=== PATIENT | female | born 1940 | race Caucasian/White ===

== ENCOUNTER 2016-11-09 20:58 | Inpatient (IN) | payer MEDICARE, MEDICAID ==
[~2016-11-09] VITALS: Ht 152.4 cm; Wt 63.5 kg
[~2016-11-09 20:58] MED LIST: Fluconazole PO; METO25TA20 PO; METR500T PO; PANT40VI IV
[2016-11-09] MEDS ORDERED: IV NS 0.9% 500 ML BAG IV ONE ×2 (21:30→22:00)
[2016-11-09 21:35] LABS: BASOPHILS # (AUTO) 0.2 /CMM (0.0-0.2); BASOPHILS % (AUTO) 0.5 % (0.0-2.0); HEMATOCRIT 26 % (33-45); HEMOGLOBIN 9.3 g/dL (11.5-14.8); LYMPHOCYTES # (AUTO) 0.9 /CMM (0.8-4.8); LYMPHOCYTES % (AUTO) 2.9 % (20.0-44.0); MEAN CORPUSCULAR HEMOGLOBIN 36 PG (26.0-33.0); MEAN CORPUSCULAR HGB CONC 36 g/dl (31.0-36.0); MEAN CORPUSCULAR VOLUME 100 fL (82-100); MONOCYTES % (AUTO) 3.3 % (2.0-12.0); NEUTROPHILS # (AUTO) 28.2 /CMM (1.8-8.9); NEUTROPHILS % (AUTO) 93.3 % (43.0-81.0); PLATELET COUNT (AUTO) 423 /CMM (150-450); RDW COEFFICIENT OF VARIATION 12.7 (11.5-15.0); RED BLOOD CELL COUNT(AUTO) 2.57 MIL/uL (4.0-5.2)
[2016-11-09 21:38] LABS: WHITE BLOOD COUNT (AUTO) 30.3 K/uL (4.3-11.0)
[2016-11-09] MEDS ORDERED: ONDANSETRON HCL/PF 4 MG/2 ML VIAL ONE (21:39)
--- NOTE | 2016-11-09 21:39 | NUR ---
DR GRAMAJO ON THE PHONE WITH OB DR DUBOIS
[2016-11-09 21:40] LABS: CALCIUM, SERUM 7.7 mg/dL (8.5-10.1); CARBON DIOXIDE 18 mmol/L (21-32); CHLORIDE 95 mmol/L (98-107); CREATININE 1.5 mg/dL (0.6-1.3); GLUCOSE 202 mg/dL (74-106); POTASSIUM 4.1 mmol/L (3.5-5.1); SODIUM SERUM 128 mmol/L (136-145); UREA NITROGEN, BLOOD 24 mg/dL (7-18)
[2016-11-09] MEDS ORDERED: MORPHINE SULFATE INJ 2 MG/ML DISP.SYRIN ONE (21:47)
[2016-11-09 21:48] LABS: TROPONIN I < 0.017 ng/mL (0.00-0.056)
[2016-11-09 21:49] LABS: INR 1.27 (0.87-1.13); PROTHROMBIN TIME 13.4 SECS (9.5-12.7)
[2016-11-09] MEDS ORDERED: PIPERACILLIN /TAZOBACTAM 3.375 G VIAL IV ONE (21:52)
[2016-11-09 21:53] LABS: ALANINE AMINOTRANSFERASE 11 U/L (12-78); ALBUMIN 1.9 g/dL (3.4-5.0); ALKALINE PHOSPHATASE 202 U/L (46-116); ASPARTATE AMINOTRANSFERASE 21 U/L (15-37); B-TYPE NATRIURETIC PEPTIDE 3477 PG/ML (0-125); BILIRUBIN,DIRECT 0.6 mg/dL (0.0-0.2); TOTAL PROTEIN, SERUM 6.5 g/dL (6.4-8.2)
[2016-11-09] MEDS ORDERED: ONDANSETRON HCL/PF 4 MG/2 ML VIAL IV ONE (22:00)
[2016-11-09] MEDS ORDERED: IV NS 0.9% 1,000 ML BAG IV ONE (22:00)
[2016-11-09] MEDS ORDERED: PIPERACILLIN /TAZOBACTAM 3.375 G in IV D5W 50 ML IV ONE (22:00)
[2016-11-09] MEDS ORDERED: MORPHINE SULFATE INJ 4 MG/ML DISP.SYRIN IV ONE (22:00)
--- NOTE | 2016-11-09 22:09 | NUR ---
DR. WISEMAN CALLED.
[2016-11-09] MEDS ORDERED: VANCOMYCIN 1 GM in IV D5W 250 ML IV ONE (22:30)
[2016-11-09] MEDS ORDERED: VANCOMYCIN 1 GM VIAL ONE (22:48)
[2016-11-09] MEDS ORDERED: PANTOPRAZOLE 40 MG VIAL IV SCH (23:00)
[2016-11-09] MEDS ORDERED: IV D5/ 0.9% NACL 1,000 ML IV SCH (23:00)
--- NOTE | 2016-11-09 23:14 | NUR ---
ICU 260
[2016-11-09 23:20] LABS: APPEARANCE,URINE CLOUDY (CLEAR); COLOR,URINE YELLOW (YELLOW)
[2016-11-09 23:21] LABS: PH,URINE 7.5 (5.0-8.0); PROTEIN,URINE 1+ mg/dl (NEGATIVE)
[2016-11-09 23:22] LABS: BILIRUBIN,URINE NEGATIVE (NEGATIVE); BLOOD, URINE 1+ Ery/uL (NEGATIVE); KETONES,URINE TRACE (NEGATIVE); UGLUCOSE NEGATIVE (NEGATIVE); UROBILINOGEN,URINE 0.2 EU/dL (0.2)
[2016-11-09 23:23] LABS: LEUKOCYTE ESTERASE ,URINE 2+ (NEGATIVE); NITRITE, URINE NEGATIVE (NEGATIVE)
[2016-11-09 23:24] LABS: BACTERIA,URINE Many /HPF (None Seen); SQUAMOUS EPITHELIAL CELL,UR Few /HPF (None Seen); WBC,URINE 81-100 /HPF (0-3)
[2016-11-09] MEDS ORDERED: DEXTROSE 50%-WATER 50 ML DISP.SYRIN IV PRN (23:30)
[2016-11-10] VITALS (71 sets, daily range): BP systolic 58–164; BP diastolic 14–72
[2016-11-10] MEDS ORDERED: PANTOPRAZOLE 40 MG VIAL ONE (00:10)
--- NOTE | 2016-11-10 00:20 | NUR ---
COMIC BOOK WRITER - NOTES - PT RECEIVED IN ROOM 260, ADMITTED FOR SEPSIS UTI. PT IS ALERT AND ORIENTED X4, MOZAMBICAN SPEAKING, NO COMPLAINTS OF NAUSEA/VOMITING OR PAIN AT THIS MOMENT. PT IS IN NORMAL SINUS RHYTHM, SBP 90S-100S. PT IS ON ROOM AIR TOLERATING WELL 02SAT > 96%. PT IS ON CLEAR LIQUID DIET, PT STATED THAT SHE DOES NOT REALLY EAT AT HOME, SINCE LIKE 3-4 WEEKS AGO, SHE ONLY DRINKS WATER. PT HAS A COTTO CATHETER WITH MILKY WHITISH YELLOW URINE, URINE SAMPLE SENT FOR CULTURE, ADEQUATE AMOUNT OF URINE. PT HAS WHAT LOOKS LIKE A HEALED PRESSURE SORE, PICTURE TAKEN, SHE STATES THAT SHE HAS NOT WALKED IN LIKE 3-4 WEEKS. PT HAS A L AC 20G IV, INTACT AND PATENT. WILL CONTINUE TO MONITOR
[2016-11-10] MEDS: BLOOD SUGAR DIAGNOSTIC 1 EACH STRIP IN SCH ×5 (00:51→22:43)
[2016-11-10] MEDS: INSULIN REGULAR, HUMAN 100 UNIT/ML 3 ML VIAL SQ PRN ×5 (00:58→22:44)
[2016-11-10] MEDS ORDERED: INSULIN REGULAR, HUMAN 100 UNIT/ML 3 ML VIAL ONE (01:14)
[2016-11-10] MEDS ORDERED: PIPERACILLIN /TAZOBACTAM 2.25 G VIAL IV ONE (04:44)
[2016-11-10 04:58] LABS: HEMATOCRIT 21 % (33-45); HEMOGLOBIN 7.6 g/dL (11.5-14.8); LYMPHOCYTES # (AUTO) 1.1 /CMM (0.8-4.8); LYMPHOCYTES % (AUTO) 4.8 % (20.0-44.0); MEAN CORPUSCULAR HEMOGLOBIN 38 PG (26.0-33.0); MEAN CORPUSCULAR HGB CONC 36 g/dl (31.0-36.0); MEAN CORPUSCULAR VOLUME 107 fL (82-100); MONOCYTES # (AUTO) 1.1 /CMM (0.1-1.30); NEUTROPHILS # (AUTO) 20.9 /CMM (1.8-8.9); NEUTROPHILS % (AUTO) 90.2 % (43.0-81.0); PLATELET COUNT (AUTO) 296 /CMM (150-450); RDW COEFFICIENT OF VARIATION 13.1 (11.5-15.0); WHITE BLOOD COUNT (AUTO) 23.1 K/uL (4.3-11.0)
[2016-11-10] MEDS ORDERED: PIPERACILLIN /TAZOBACTAM 4.5 G in IV D5W 50 ML IV SCH (05:00)
[2016-11-10 05:24] LABS: ALANINE AMINOTRANSFERASE 11 U/L (12-78); ALBUMIN 1.5 g/dL (3.4-5.0); ALKALINE PHOSPHATASE 162 U/L (46-116); ASPARTATE AMINOTRANSFERASE 17 U/L (15-37); BILIRUBIN,TOTAL 0.7 mg/dL (0.2-1.0); CALCIUM, SERUM 7.2 mg/dL (8.5-10.1); CARBON DIOXIDE 19 mmol/L (21-32); CHLORIDE 101 mmol/L (98-107); CREATININE 1.5 mg/dL (0.6-1.3); GLUCOSE 164 mg/dL (74-106); POTASSIUM 3.5 mmol/L (3.5-5.1); PREALBUMIN 5.6 MG/DL (18.0-35.7); SODIUM SERUM 131 mmol/L (136-145); THYROID STIMULATING HORMONE 1.547 uIU/mL (0.358-3.74); TOTAL PROTEIN, SERUM 5.7 g/dL (6.4-8.2); UREA NITROGEN, BLOOD 21 mg/dL (7-18)
[2016-11-10 05:26] LABS: IRON, SERUM 18 ug/dl (50-175); TOTAL IRON BINDING CAPACITY 50 ug/dl (250-450)
[2016-11-10 05:28] LABS: RED BLOOD CELL COUNT(AUTO) 1.98 MIL/uL (4.0-5.2)
[2016-11-10 05:55] LABS: BAND % (MANUAL) 1 % (0.0-5.0); LYMPHOCYTES % (MANUAL) 9 % (16-48); MONOCYTES % (MANUAL) 4 % (0-11.0); NEUTROPHILS % (MANUAL) 86 (42-76)
--- NOTE | 2016-11-10 07:35 | NUR ---
INITIAL DRIVER'S LICENSE REVIEWING OFFICER NOTE RCVD PT AWAKE AND ALERT SHOWING NO S/O DISTRESS. ST ON TELE. GOOD SATURATION ON RA. COTTO DRAINING CLOUDY, YELLOW URINE. LEFT AC #20 C/D/I/PATENT. NO S/O INFILTRATION/PHLEBITIS OBSERVED. IVF INFUSING. PT'S SON, OREN AT BEDSIDE UPDATED ON PT'S CONDITION. WILL CONTINUE TO MONITOR PT FOR SAFETY AND COMFORT. CALL LIGHT WITHIN REACH. BED IN LOW AND LOCKED POSITION.
[2016-11-10] MEDS: ACETAMINOPHEN 325 MG TABLET PO PRN (08:20)
[2016-11-10] MEDS ORDERED: METO25TA20 PO (08:33)
[2016-11-10] MEDS ORDERED: MEGE400O PO (08:33)
[2016-11-10] MEDS ORDERED: FEE PK DOSING 1 MIN EA MC ONE (08:33)
[2016-11-10] MEDS ORDERED: IPRATROPIUM NEB FS 0.5 MG/2.5 ML AMPUL.NEB NEB SCH (09:00)
[2016-11-10] MEDS ORDERED: ACETAMINOPHEN 325 MG TABLET PO ONE (09:03)
[2016-11-10] MEDS: HYDROCODONE/APAP 5/325MG 1 EACH TABLET PO PRN (09:15)
--- NOTE | 2016-11-10 09:37 | NUR ---
ELECTROTYPER APPRENTICE NOTE DR. WISEMAN CALLED AND INFORMED OF THE FOLLOWING. PT C/O SEVERE PAIN ON LEFT LATERAL CHEST AREA 12/04, PT TAKING SHALLOW BREATHS DUE TO PAIN. PT STARTED ON 3L NC. PT FEELS HOT TO TOUCH, DESPITE TEMP 98.4 THIS AM. HGB TRENDING DOWN TO 7.6. RCVD ORDERS TO TRANSFUSE 1 UNIT PRBC, DECREASE IVF TO 40ML/HR, BREATHING TX, MORPHINE AND NORCO FOR PAIN MX. PT AND OREN INFORMED OF ABOVE. CONSENT FOR BLOOD TRANSFUSION OBTAINED FROM PT. ORDERS IN PLACE. WILL CONTINUE TO MONITOR.
--- NOTE | 2016-11-10 11:03 | NUR ---
PARAEDUCATOR NOTE DR. WISEMAN IN UNIT INFORMED OF PT'S SBP IN THE 70s. REQUESTED PICC LINE AND VASOPRESSOR MEDS. WILL ORDER. WILL CONTINUE TO MONITOR.
--- NOTE | 2016-11-10 11:14 | NUR ---
PHLEBOTOMY MANAGER NOTE PT REFUSING PICC LINE INSERTION. PT'S FAMILY AWARE. DR. DYE AT BEDSIDE EDUCATING PT ABOUT THE NEED FOR THE PICC. PT STILL REFUSES. DR. WISEMAN INFORMED HE'LL SPEAK TO PT.
[2016-11-10] MEDS ORDERED: NOREPINEPHRINE 8 MG in IV D5W 500 ML IV PRN (11:30)
--- NOTE | 2016-11-10 11:31 | NUR ---
JUDO TEACHER NOTE DR. WISEMAN CONVINCED PT TO GET PICC LINE INSERTED. ALLA RN CALLED AND WILL COME TO INSERT PICC LINE. CONSENT SIGNED BY PT AND PLACED IN CHART. PT'S FAMILY (OREN AND ELIDA) AWARE.
--- NOTE | 2016-11-10 12:24 | NUR ---
WOUND CARE CONSULT PATIENT SEEN AND SKIN INTEGRITY ASSESSMENT DONE. SEE BRAILLE AND TALKING BOOKS CLERK ASSESSMENT IN PCS FOR TODAY ALONG WITH ALL RECOMMENDATIONS. ALL TREATMENT PLANS AND SKIN MANAGEMENT DISCUSSED WITH MD AND MD IN AGREEMENT. 1ST STEP LOW AIRLOSS MATTRESS ORDERED AND TO BE PLACED WHEN AVAILABLE. RECOMMEND TURNING SCHED Q 2 HOURS PATIENT CONDITION PERMITS, AND RECOMMEND BILATERAL HEEL FLOATING. Z GUARD ORDERED FOR SKIN AND MOISTURE MANAGMENT. PATIENT WITH CURRENT JORDYN AT 13. PATIENT IS ABLE TO ASSIST WITH TURNING AND REPOSITIONING, BUT IS WEAK AND FRAIL AND REQUIRES ASSIST. PATIENT PRESENTS WITH STAGE 2 PRESSURE ULCER TO THE SACRAL AREA AND PER PATIENT STATEMENT TO ME, "IT'S BEEN THERE FOR A WHILE BECAUSE I'M PROBABLY IN BED TOO MUCH". ALL SKIN MANAGMENT DISCUSSED WITH NURSING AT THE BEDSIDE. Addendum: 11/10/16 at 1229 by MAURICE DAVID WNDNU Amended: Links added.
[2016-11-10] MEDS ORDERED: IV NS 0.9% 50 ML IV SCH (12:30)
[2016-11-10] MEDS ORDERED: IV NS 0.9% 1,000 ML BAG IV PRN (12:30)
[2016-11-10] MEDS ORDERED: HYDROGEL DRESSING 90 GM TUBE TP PRN (12:30)
[2016-11-10] MEDS ORDERED: Z GUARD REMEDY 2 OZ OINT TP PRN (12:30)
[2016-11-10] MEDS: IV NS 0.9% 1,000 ML IV PRN (12:46)
[2016-11-10] MEDS: ZINC SULFATE 220 MG CAPSULE PO SCH (12:47)
[2016-11-10] MEDS: METOCLOPRAMIDE HCL 10 MG/2 ML VIAL IV SCH ×2 (12:47→17:22)
[2016-11-10] MEDS: ASCORBIC ACID 500 MG TABLET PO SCH (12:47)
[2016-11-10] MEDS: ZOSYN IVPB 2.25 G in IV D5W 50ml IV SCH ×3 (12:47→23:11)
[2016-11-10] MEDS: MULTIVITAMINS,THERAGRAN 1 UDTAB TABLET PO SCH (12:47)
[2016-11-10] MEDS: MEGESTROL ACETATE SUSP 400 MG/10 ML UDC PO SCH ×2 (12:47→17:22)
[2016-11-10] MEDS ORDERED: IV NS 0.9% 1,000 ML IV PRN (13:00)
[2016-11-10] MEDS: HYDROGEL DRESSING 90 GM TUBE TP SCH (13:59)
[2016-11-10] MEDS: Z GUARD REMEDY 2 OZ OINT TP SCH (13:59)
--- NOTE | 2016-11-10 15:40 | NUR ---
Met with family at the bedside. Patient lives locally in the 1st floor apartment with grandson and patient significant other. Patient has been bed bound/chair bound for the past few months due to weakness to BLE and bedsore.Patient requires max to total assistance with adl. She has a caregiver 6days week 8-9hrs/day. She also has a pending IHSS application with an assigned case manager from the [facility]. Patient has wheelchair and walker at home, She is currently on homehealth services but family do not recall the name of the agency. Has good family support. Current plan is to return home with homehealth upon discharge. Addendum: 11/10/16 at 1859 by TOSHIA HOLLOWAY RN Amended: Links added.
--- NOTE | 2016-11-10 15:47 | NUR ---
TIRE CENTER MANAGER NOTE PT TRANSPORTED TO RADIOLOGY FOR CT SCAN PER PROTOCOL WITH RN AT BEDSIDE. PT'S VITAL SIGNS STABLE. WILL CONTINUE TO MONITOR.
[2016-11-10] MEDS: BOOST PLUS FOOD-VANILLA 237 ML BOX PO SCH ×2 (17:22→17:23)
--- NOTE | 2016-11-10 18:51 | NUR ---
ENDING HUNTING SALES LEADER NOTE PT AWAKE AND ALERT, SHOWING NO S/O DISTRESS OR C/O PAIN. ST ON TELE. PRBC TRANSFUSION IN PROCESS. COTTO DRAINING CLOUDY, YELLOW COLORED URINE. CAREN PICC IN PLACE C/D/I/PATENT. NO S/O INFILTRATION/PHLEBITIS OBSERVED. PT TOLERATING ORDERED DIET. PT'S CARE WILL BE ENDORSED TO DISTANCE EDUCATION TEACHER RN FOR CONTINUITY OF CARE.
--- NOTE | 2016-11-10 20:00 | NUR ---
RN NOTES RECEIVED PX AWAKE, ALERT, ORIENTED X 3, ON ROOM AIR, DENIED PAIN, SOB, N/V; BLOOD TRANSFUSION FINISHED INFUSING, PX DENIED CHEST PAIN, ITCHING; PX AFEBRILE V/S WNL WITH LEVOPHED TO KEEP SBP MORE THAN 85; HAS COTTO CATH TAPED TO THIGH TO BAG BY GRAVITY; PX REFUSED THE IDEA OF DVT PUMPS DESPITE HEALTH EDUCATION; HEELS OFFLOADED; DISCUSSED PLAN OF CARE. ST ON MONITOR BUT NOTED MULTIPLE ARTIFACTS.
--- NOTE | 2016-11-10 20:30 | NUR ---
RN NOTES DR. PAT CAME TO SEE PX, AWARE OF PX CONDITION, SUGGESTED TO PX EGD IN THE MORNING AND NPO POST MIDNIGHT IF PX AGREES TO PROCEDURE BUT PX DECLINED DESPITE HEALTH EDUCATION FROM . AWARE THAT PX DECLINED TO SIGN CONSENT.
--- NOTE | 2016-11-10 22:43 | NUR ---
RN NOTES BLOOD SUGAR 175 MG/DL, PX REFUSED INSULIN SQ DESPITE HEALTH EDUCATION.
[2016-11-10] MEDS: VANCOMYCIN 0.75 GM in IV D5W 250 ML IV SCH (23:11)
[2016-11-11] VITALS (48 sets, daily range): BP systolic 77–137; BP diastolic 20–89
[2016-11-11] MEDS ORDERED: AMIODARONE 150 MG/3 ML VIAL IV ONE ×2 (01:18→01:23)
[2016-11-11] MEDS ORDERED: AMIODARONE 150 MG in IV D5W 100 ML IV ONE (01:30)
--- NOTE | 2016-11-11 01:30 | NUR ---
RN NOTES AT AROUND 1:06 AM, PX HR INCREASED TO 180, EKG WAS DONE CONFIRMING SVT, PX DENIED CHEST PAIN, DIZZINESS, PALPITATIONS, BP MAINTAINED BY LEVOPHED DRIP NOW AT 5 MCG/MIN, DR. MANUEL WAS CALLED AND INFORMED RIGHT AWAY, DR. NARAYANAN WAS ALSO INFORMED, GAVE AMIODARONE LOAD 150 MG FOLLOWED BY AMIODARONE DRIP PER PROTOCOL.
[2016-11-11] MEDS: AMIODARONE 900 MG in IV D5W 482 ML IV PRN ×2 (01:33→12:31)
--- NOTE | 2016-11-11 02:00 | NUR ---
RN NOTES INFORMED PX THAT IF SHE DECIDES DURING DAY FOR THE EGD, SHE NEEDS TO BE NPO FOR THE PROCEDURE. SHE STATED THAT SHE UNDERSTOOD ITS PURPOSE, BUT SAYS I STILL WANT TO DRINK AND EAT.
[2016-11-11 04:39] LABS: BASOPHILS % (AUTO) 0.1 % (0.0-2.0); HEMATOCRIT 28 % (33-45); HEMOGLOBIN 9.7 g/dL (11.5-14.8); LYMPHOCYTES # (AUTO) 1.8 /CMM (0.8-4.8); LYMPHOCYTES % (AUTO) 5.5 % (20.0-44.0); MEAN CORPUSCULAR HEMOGLOBIN 33 PG (26.0-33.0); MEAN CORPUSCULAR HGB CONC 35 g/dl (31.0-36.0); MEAN CORPUSCULAR VOLUME 96 fL (82-100); MONOCYTES # (AUTO) 0.7 /CMM (0.1-1.30); MONOCYTES % (AUTO) 2.3 % (2.0-12.0); NEUTROPHILS # (AUTO) 30.1 /CMM (1.8-8.9); NEUTROPHILS % (AUTO) 92.1 % (43.0-81.0); PLATELET COUNT (AUTO) 306 /CMM (150-450); RDW COEFFICIENT OF VARIATION 14.9 (11.5-15.0); RED BLOOD CELL COUNT(AUTO) 2.89 MIL/uL (4.0-5.2)
--- NOTE | 2016-11-11 04:47 | NUR ---
RN NOTES CONDITION AND NEURO STATUS UNCHANGED; DENIED PAIN, SOB, N/V; HR STILL AT LOW 100, CONTINUED ON LEVOPHED AND AMIODARONE DRIPS.
[2016-11-11 04:54] LABS: WHITE BLOOD COUNT (AUTO) 32.7 K/uL (4.3-11.0)
[2016-11-11 04:56] LABS: ALANINE AMINOTRANSFERASE 11 U/L (12-78); ALKALINE PHOSPHATASE 151 U/L (46-116); ASPARTATE AMINOTRANSFERASE 17 U/L (15-37); BILIRUBIN,TOTAL 3.4 mg/dL (0.2-1.0); CALCIUM, SERUM 7.1 mg/dL (8.5-10.1); CARBON DIOXIDE 16 mmol/L (21-32); CHLORIDE 99 mmol/L (98-107); CREATININE 1.2 mg/dL (0.6-1.3); GLUCOSE 288 mg/dL (74-106); PHOSPHORUS 2.4 mg/dL (2.5-4.9); SODIUM SERUM 127 mmol/L (136-145); TOTAL PROTEIN, SERUM 5.2 g/dL (6.4-8.2); UREA NITROGEN, BLOOD 19 mg/dL (7-18)
[2016-11-11 05:14] LABS: ALBUMIN 1.3 g/dL (3.4-5.0)
[2016-11-11 05:15] LABS: MAGNESIUM 1.2 mg/dL (1.8-2.4)
[2016-11-11] MEDS: ZOSYN IVPB 2.25 G in IV D5W 50ml IV SCH ×3 (05:24→18:28)
[2016-11-11] MEDS: IV NS 0.9% 1,000 ML IV PRN (05:33)
[2016-11-11 05:46] LABS: BAND % (MANUAL) 25 % (0.0-5.0); LYMPHOCYTES % (MANUAL) 4 % (16-48); MONOCYTES % (MANUAL) 2 % (0-11.0); NEUTROPHILS % (MANUAL) 69 (42-76)
--- NOTE | 2016-11-11 06:38 | NUR ---
RN NOTES UPDATED DR. WISEMAN REGARDING PX CONDITION AND LABS, NEW ORDERS MADE, PX DENIED PAIN, SOB, N/V; CONTINUED AMIODARONE DRIP; EARLIER AT 6 AM, CHANGED DIAPER AND GOWN AND BED LINENS, NO BM, NO NEW SKIN BREAKDOWN, CHANGED DRESSING ON THE SACRAL AREA.
[2016-11-11] MEDS: BLOOD SUGAR DIAGNOSTIC 1 EACH STRIP IN SCH ×4 (06:46→21:38)
[2016-11-11] MEDS ORDERED: Magnesium 1GM/D5W 100ML PREMIX PIGGYBACK IV ONE (07:00)
--- NOTE | 2016-11-11 07:20 | NUR ---
ICU INITIAL NOTE RECEIVED PT ASLEEP, EASY TO AROSE, PT IS ABLE TO MAKE NEEDS KNOWN, ABLE TO FOLLOW COMMANDS, PT IS ON BEDSIDE MONITOR SHOWING SR 80'S, NO C/O OF CHEST PAIN OR DISTRESS AT THIS TIME, PT IS ON RA, NO S/S OF RESP. DISTRESS OR SOB NOTED AT THIS TIME, PT HAS CAREN PICC, C/D/I/PATENT, FLUSHING WELL, RUNNING NS @70ML/HR, AMIO @1MG/HR, LEVO @ 3MCG/MIN, NO S/S OF INFECTION/ INFILTRATION NOTED AT THIS TIME, PT HAS F/C DRAINING CLOUDY YELLOW URINE TO GRAVITY, PT IS NOTED WITH SKIN ISSUES, TREATMENT CARRIED OUT, ALL SAFETY MEASURES IN PLACE AT ALL TIMES, CALL LIGHT WITHIN EASY REACH, WILL MONITOR PT CLOSELY FOR CHANGES
--- NOTE | 2016-11-11 08:00 | NUR ---
ICU NOTE DR. PAT CALLED, UPDATED MD JORDEN AWARE PT STILL REFUSING EGD AND COLONOSCOPY.
[2016-11-11] MEDS ORDERED: FAMOTIDINE/PF INJ 20 MG/2 ML VIAL IV SCH (09:00)
--- NOTE | 2016-11-11 09:00 | NUR ---
ICU NOTE MADE MD NIK UPDATED ON PT STATUS, AWARE OF ALL LABS AND RESULTS, PT IS STILL REFUSING EGD AND COLOSCOPY, WAITING UNTIL MONDAY TO MAKE DECISION.
[2016-11-11] MEDS: Magnesium 1GM/D5W 100ML PREMIX 100 ML IV SCH ×4 (09:38→12:34)
[2016-11-11] MEDS: POTASSIUM CL. PREMIX PERIPHER. 50 ML IV SCH ×4 (09:38→12:34)
[2016-11-11] MEDS: MEGESTROL ACETATE SUSP 400 MG/10 ML UDC PO SCH ×2 (09:38→17:14)
[2016-11-11] MEDS: ASCORBIC ACID 500 MG TABLET PO SCH (09:38)
[2016-11-11] MEDS: ZINC SULFATE 220 MG CAPSULE PO SCH (09:38)
[2016-11-11] MEDS: MULTIVITAMINS,THERAGRAN 1 UDTAB TABLET PO SCH (09:38)
[2016-11-11] MEDS: METOCLOPRAMIDE HCL 10 MG/2 ML VIAL IV SCH ×3 (09:39→17:14)
[2016-11-11] MEDS: Z GUARD REMEDY 2 OZ OINT TP SCH (09:40)
[2016-11-11] MEDS: HYDROGEL DRESSING 90 GM TUBE TP SCH (09:40)
[2016-11-11] MEDS: BOOST PLUS FOOD-CHOCLATE 237 ML BOX PO SCH ×3 (09:52→17:14)
[2016-11-11 11:13] LABS: CANCER AG, 125 98.6 U/mL (0.0-38.1); CARCINOEMBRYONIC AG (CEA) 4.5 ng/mL (0.0-4.7)
--- NOTE | 2016-11-11 12:00 | NUR ---
ICU NOTE BS 276, PT REFUSED COVERAGE, STATING SHES NOT A DIABETIC, DID PT EDUCATION, PT STILL REFUSED
--- NOTE | 2016-11-11 13:13 | NUR ---
ICU NOTE PT REFUSED COMPLETE U/S, ONLY ALLOWED EXTERNAL U/S
[2016-11-11] MEDS ORDERED: ZOLPIDEM TARTRATE 5 MG TABLET PO PRN (14:00)
[2016-11-11] MEDS: Potassium Phosphate meq 11 MEQ in IV D5W 100 ML IV SCH ×2 (15:27→17:14)
--- NOTE | 2016-11-11 15:39 | NUR ---
ICU NOTE MAGNESIUM AND POTASSIUM REPLACED
[2016-11-11] MEDS: INSULIN REGULAR, HUMAN 100 UNIT/ML 3 ML VIAL SQ PRN ×2 (17:48→21:37)
[2016-11-11] MEDS: IPRATROPIUM NEB FS 0.5 MG/2.5 ML AMPUL.NEB NEB PRN (20:52)
[2016-11-11] MEDS: ALBUTEROL FS 2.5 MG/3 ML VIAL.NEB NEB PRN (20:52)
[2016-11-11] MEDS ORDERED: MEROPENEM 500 MG in IV NS 0.9% 50 ML IV SCH (21:00)
[2016-11-11] MEDS: MEROPENEM 500 MG in IV NS 0.9% 50 ML IV SCH (21:17)
[2016-11-11] MEDS ORDERED: INSULIN DETEMIR 100 UNIT/ML CARTRIDGE SQ SCH (22:00)
[2016-11-11] MEDS: MIRTAZAPINE 15 MG TABLET PO SCH (22:18)
[2016-11-11] MEDS: VANCOMYCIN 0.75 GM in IV D5W 250 ML IV SCH (22:18)
[2016-11-12] VITALS (58 sets, daily range): BP systolic 88–133; BP diastolic 26–97
[2016-11-12 04:47] LABS: EOSINOPHILS % (AUTO) 0.1 % (0.0-6.0); HEMATOCRIT 24 % (33-45); HEMOGLOBIN 8.9 g/dL (11.5-14.8); LYMPHOCYTES # (AUTO) 0.9 /CMM (0.8-4.8); MEAN CORPUSCULAR HEMOGLOBIN 38 PG (26.0-33.0); MEAN CORPUSCULAR HGB CONC 37 g/dl (31.0-36.0); MEAN CORPUSCULAR VOLUME 102 fL (82-100); MONOCYTES # (AUTO) 0.4 /CMM (0.1-1.30); NEUTROPHILS % (AUTO) 93.9 % (43.0-81.0); PLATELET COUNT (AUTO) 198 /CMM (150-450); RDW COEFFICIENT OF VARIATION 15.4 (11.5-15.0); RED BLOOD CELL COUNT(AUTO) 2.34 MIL/uL (4.0-5.2); WHITE BLOOD COUNT (AUTO) 22.4 K/uL (4.3-11.0)
[2016-11-12 04:58] LABS: ALANINE AMINOTRANSFERASE 11 U/L (12-78); ALKALINE PHOSPHATASE 151 U/L (46-116); ASPARTATE AMINOTRANSFERASE 19 U/L (15-37); BILIRUBIN,DIRECT 1.4 mg/dL (0.0-0.2); BILIRUBIN,TOTAL 1.9 mg/dL (0.2-1.0); CALCIUM, SERUM 7.3 mg/dL (8.5-10.1); CARBON DIOXIDE 16 mmol/L (21-32); CHLORIDE 101 mmol/L (98-107); GLUCOSE 151 mg/dL (74-106); POTASSIUM 3.3 mmol/L (3.5-5.1); SODIUM SERUM 128 mmol/L (136-145); TOTAL PROTEIN, SERUM 4.8 g/dL (6.4-8.2); UREA NITROGEN, BLOOD 15 mg/dL (7-18)
[2016-11-12 05:29] LABS: ALBUMIN 1.2 g/dL (3.4-5.0)
[2016-11-12 06:09] LABS: BAND % (MANUAL) 1 % (0.0-5.0); LYMPHOCYTES % (MANUAL) 8 % (16-48); MONOCYTES % (MANUAL) 3 % (0-11.0); NEUTROPHILS % (MANUAL) 88 (42-76)
[2016-11-12 06:21] LABS: FERRITIN 1284 ng/mL (8-388); GAMMA GLUTAMYL TRANSFERASE 111 U/L (5-85)
--- NOTE | 2016-11-12 06:53 | NUR ---
SOFTWARE DEVELOPMENT TEST ENGINEER - NO CHANGES FROM PREVIOUS ASSESSMENTS. PT. WAS ADM. AMBIEN 2.5MG/PO & SLEPT FOR MOST PART OF THE NIGHT. FAMILY CALLED & WAS GIVEN STATUS UPDATES. KIRTI HAD GOOD UOP/500 CC FOR 12 HR. SHIFT. PT. HAD BOOST/H20 FLUIDS. AMIODARONE GTT. WAS SHUT OFF & DC'D AT 01:30 AM. AM LABS DRAWN FROM RUE PICC LINE. ALL PORTS ARE OPEN TO FLUSH. PT'S ALBUMIN IS 1.2 THIS AM. RN ADDED ON MAGNESIUM & PHOSPHORUS. AWAITING RESULTS. WILL ENDORSE TO DAYSHIFT RN. PT.WAS COVERED WITH 5 UNITS OF REG. INSULIN. CONT. POC.
[2016-11-12 07:43] LABS: MAGNESIUM 1.9 mg/dL (1.8-2.4); PHOSPHORUS 1.8 mg/dL (2.5-4.9)
--- NOTE | 2016-11-12 08:00 | NUR ---
AM BLOOD GLUCOSE IS 51, RECHECKED AND IT IS 57. GAVE DEXTROSE [address] WISEMAN HE SAYS TO RECHECK THE GLUCOSE AFTER D50 AND WILL BE IN THE HOSPITAL SOON. PT IS DROWSY BUT ABLE TO SAFELY TAKE SMALL SIPS OF JUICE AND BOOST.
[2016-11-12] MEDS ORDERED: IV NS 0.9% 1,000 ML IV PRN (08:18)
--- NOTE | 2016-11-12 08:45 | NUR ---
REPEATED BLOOD GLUCOSE IS 136, NO INSULIN ADMINISTERED.
--- NOTE | 2016-11-12 09:00 | NUR ---
DR. WISEMAN ON THE UNIT RELAYED TO HIM THE MORNING GLUCOSE LEVEL SPOT CHECK WAS 51, GAVE D50 AND NOW UP TO 136. HE ORDERS TO START IVF D5NS AT 20ML/H. DISCONTINUE CARDIOLOGY'S ORDER FOR NS AT 125ML/H. ORDERS TO INSERT NG TUBE THE PT IS LETHARGIC AT THIS POINT AND UNABLE TO REFUSE. ALSO STATES THAT HE SHOULD HAVE BEEN NOTIFIED YESTERDAY ABOUT THE PT'S REFUSAL OF THE NG PLACEMENT. NG PLACED IN RIGHT NARE, CONFIRMED AUSCULATION WITH RN AND MD AT BEDSIDE. DR. WISEMAN ALSO ORDERS FOR CXR, PLACES THE ORDER HIMSELF. ORDERS TO START TF FIBERSOURCE AT 20ML/HR AND INCREASE TO 40 PER PT TOLERATION.
--- NOTE | 2016-11-12 09:01 | NUR ---
DR. WISEMAN STATES TO KEEP PT IN ICU.
[2016-11-12] MEDS: MEGESTROL ACETATE SUSP 400 MG/10 ML UDC PO SCH ×2 (09:10→17:00)
[2016-11-12] MEDS: ZINC SULFATE 220 MG CAPSULE PO SCH (09:10)
[2016-11-12] MEDS: MULTIVITAMINS,THERAGRAN 1 UDTAB TABLET PO SCH (09:10)
[2016-11-12] MEDS: AMIODARONE HCL 200 MG TABLET PO SCH ×3 (09:10→17:00)
[2016-11-12] MEDS: POTASSIUM CHLORIDE 20 MEQ TAB.PRT.SR PO SCH ×3 (09:10→12:23)
[2016-11-12] MEDS: METOCLOPRAMIDE HCL 10 MG/2 ML VIAL IV SCH ×3 (09:10→17:38)
[2016-11-12] MEDS: ASCORBIC ACID 500 MG TABLET PO SCH (09:10)
[2016-11-12] MEDS: PANTOPRAZOLE 40 MG TABLET.DR PO SCH (09:10)
[2016-11-12] MEDS: MEROPENEM 500 MG in IV NS 0.9% 50 ML IV SCH ×2 (09:11→22:21)
[2016-11-12] MEDS: Z GUARD REMEDY 2 OZ OINT TP SCH (09:11)
[2016-11-12] MEDS: HYDROGEL DRESSING 90 GM TUBE TP SCH (09:11)
[2016-11-12] MEDS: BOOST PLUS FOOD-CHOCLATE 237 ML BOX PO SCH ×3 (09:20→17:00)
[2016-11-12] MEDS ORDERED: IV D5/ 0.9% NACL 1,000 ML IV PRN (10:30)
[2016-11-12] MEDS: BLOOD SUGAR DIAGNOSTIC 1 EACH STRIP IN SCH ×4 (10:51→23:21)
[2016-11-12] MEDS ORDERED: FIBERSOURCE HN 1,000 ML BOTTLE GT PRN (11:00)
--- NOTE | 2016-11-12 12:00 | NUR ---
DR. MATUTE ON THE UNIT ORDERS FOR CT ABDOMEN AND PELVIS WITH CONTRAST. CALLED RADIOLOGY WHO STATES THE PT NEEDS TO BE NPO AT LEAST 6HRS. I CALLED DR. WISEMAN AND HE STATES TO HOLD TF AND INCREASE THE D5NS TO 50ML/H UNTIL THE CT IS DONE AND THEN RESUME TF AND REGULAR IVF RATE (20ML/H), DR. MATUTE ALSO ORDERS MUCOMYST FOR THE CT CONTRAST, ONE DOSE GIVEN NOW, AND ONE DOSE AFTER THE CT IS COMPLETE AND THEN 2 DOSES TOMORROW. ORDERS UPDATED IN [facility]. CALLED CT TO CONFIRM THE TEST WILL BE DONE TONIGHT BY 2029, AND THE PROCEDURE EXPLAINED TO THE FAMILY AT BEDSIDE THE SON SIGNED FOR CONSENT.
[2016-11-12] MEDS: Potassium Phosphate meq 11 MEQ in IV D5W 100 ML IV SCH ×2 (12:23→15:05)
[2016-11-12 12:34] LABS: ABG BASE EXCESS -10.1 mmol/L; ABG OXYGEN SATURATION 97.4 % (92.0-98.5); ABG PCO2 20.1 mmHg (35.0-45.0); ABG PH 7.419 (7.350-7.450); ABG PO2 100.1 mmHg (75.0-100.0); AaDO2 25.6 mmHg; COHb 0.9 % (0.5-1.5); MetHb 0.1 % (0.0-1.5); O2Hb 96.4 % (94.0-97.0); SITE, ABG Right Radial; VENT MODE, BG ROOM AIR
[2016-11-12] MEDS ORDERED: ACETYLCYSTEINE 10% 3,000 MG/30 ML VIAL NG SCH (13:00)
[2016-11-12] MEDS ORDERED: ACETYLCYSTEINE 20% ORAL SOLN 6,000 MG/30 ML VIAL PO SCH (14:00)
[2016-11-12] MEDS: ACETAMINOPHEN 325 MG TABLET PO PRN (14:39)
[2016-11-12] MEDS: ACETYLCYSTEINE 20% ORAL SOLN 6,000 MG/30 ML VIAL PO SCH ×2 (15:04→22:26)
[2016-11-12] MEDS ORDERED: DEXTROSE 50%-WATER 50 ML DISP.SYRIN IV PRN (15:30)
--- NOTE | 2016-11-12 16:48 | NUR ---
NUTRITION CONSULT RECOMMENDS, START FBS AT 20ML/H FOR 24HRS AND THEN IF PT IS TOLERATING INCREASE TO GOAL RATE OF 55/HR, THEY ALSO RECOMMEND VITAMIN B AND THIAMINE, CALLED DR. WISEMAN AND HE OKAY'S THE ORDERS. ALSO REPORTED TO DR. WISEMAN THAT THE PT'S URINE OUTPUT IS LOW WITH APPROXIMATELY 300ML SINCE THE START OF SHIFT. HE ORDERS TO INCREASE THE IVF TO 70ML/HR AND THEN HEP LOCK TOMORROW MORNING 11/13/16 AT 0700. HE ALSO OKAYS TO CHANGE THE PO MEDICATIONS TO NG TUBE LIQUID FORM WHERE APPLICABLE.
[2016-11-12] MEDS ORDERED: IV NS 0.9% 250 ML IV ONE (20:11)
[2016-11-12] MEDS ORDERED: IOHEXOL-300 100 ML VIAL IV ONE (20:11)
[2016-11-12] MEDS: MORPHINE SULFATE INJ 2 MG/ML DISP.SYRIN IM PRN (21:20)
[2016-11-12] MEDS: MIRTAZAPINE 15 MG TABLET PO SCH (22:00)
[2016-11-12] MEDS: HYDROCODONE/APAP 5/325MG 1 EACH TABLET PO PRN (22:57)
--- NOTE | 2016-11-12 23:00 | NUR ---
STORE STOCK HELP - PT. WAS TAKEN TO CT BY 2RN/RAD.DEPT.AT 20:30. PT. HAD A CT DONE OF ABD/PELVIS. ACLS PROTOCOL IN PLACE. PT.IS ALSO HAVING LEFT FLANK PAIN. MORPHINE SULFATE 2MG-IVP ADM. AT 21:25 W/LITTLE RELIEF NOTED. NORCO 325/5-ONE TAB/NGT ADM. AT 23:00. PT'S DAUGHTER AT BS. PHONED RE: CT REPORT. ORDERS TO START NGT FEEDING. STATUS UPDATE GIVEN TO . LIZBET'S BS WAS #43. PT.WAS ADM. ONE AMP OF D50. 45 MIN. LATER, BS INCREASED TO #206. PT. IS RECEIVING MIV OF D5NS AT70CC/HR. VIA EVANS PUMP. PARTIAL BEDBATH ADM. WHEN PT. DOZES OFF, PT. BECOMES HYPOTENSIVE. PT.IS ASYM- PTOMATIC. CONT. POC.
[2016-11-12] MEDS: VANCOMYCIN 0.75 GM in IV D5W 250 ML IV SCH (23:19)
[2016-11-12] MEDS: INSULIN REGULAR, HUMAN 100 UNIT/ML 3 ML VIAL SQ PRN (23:20)
[2016-11-12] MEDS: ALBUTEROL FS 2.5 MG/3 ML VIAL.NEB NEB PRN (23:27)
[2016-11-12] MEDS: IPRATROPIUM NEB FS 0.5 MG/2.5 ML AMPUL.NEB NEB PRN (23:27)
[2016-11-13] VITALS (47 sets, daily range): BP systolic 75–126; BP diastolic 42–75
[2016-11-13 05:31] LABS: BASOPHILS % (AUTO) 0.1 % (0.0-2.0); EOSINOPHILS % (AUTO) 0.1 % (0.0-6.0); HEMATOCRIT 24 % (33-45); HEMOGLOBIN 8.1 g/dL (11.5-14.8); LYMPHOCYTES # (AUTO) 0.6 /CMM (0.8-4.8); LYMPHOCYTES % (AUTO) 3.6 % (20.0-44.0); MEAN CORPUSCULAR HEMOGLOBIN 34 PG (26.0-33.0); MEAN CORPUSCULAR HGB CONC 34 g/dl (31.0-36.0); MEAN CORPUSCULAR VOLUME 100 fL (82-100); MONOCYTES # (AUTO) 0.3 /CMM (0.1-1.30); NEUTROPHILS # (AUTO) 16.7 /CMM (1.8-8.9); NEUTROPHILS % (AUTO) 94.2 % (43.0-81.0); PLATELET COUNT (AUTO) 164 /CMM (150-450); RED BLOOD CELL COUNT(AUTO) 2.41 MIL/uL (4.0-5.2); WHITE BLOOD COUNT (AUTO) 17.8 K/uL (4.3-11.0)
[2016-11-13] MEDS: INSULIN REGULAR, HUMAN 100 UNIT/ML 3 ML VIAL SQ PRN ×2 (05:33→23:46)
[2016-11-13] MEDS: BLOOD SUGAR DIAGNOSTIC 1 EACH STRIP IN SCH ×4 (05:33→23:46)
[2016-11-13 05:34] LABS: CALCIUM, SERUM 7.4 mg/dL (8.5-10.1); CARBON DIOXIDE 16 mmol/L (21-32); CHLORIDE 102 mmol/L (98-107); CREATININE 1.1 mg/dL (0.6-1.3); GLUCOSE 224 mg/dL (74-106); SODIUM SERUM 129 mmol/L (136-145); UREA NITROGEN, BLOOD 14 mg/dL (7-18)
--- NOTE | 2016-11-13 06:00 | NUR ---
CODING SUPPORT SPECIALIST - PT. IS STILL RESTING W/EYES CLOSED & IS HYPOTENSIVE. WHEN AWOKEN & ARM RESTRAIGHTENED, SBP'S ARE >90MMHG. MAP HAS ALWAYS REMAINED >60. LACTIC ACID WAS JUST REPORTED AT 3.5. AWAITING FOR THE REST OF LABS & WILL INFORM . MIV OF D5NS WILL BE DC'D AT 7AM. PT.WAS COVERED W/4UNITS OF REGULAR INSULIN W/BS OF #220. CONT. POC.
[2016-11-13 07:01] LABS: BAND % (MANUAL) 2 % (0.0-5.0); LYMPHOCYTES % (MANUAL) 6 % (16-48); MONOCYTES % (MANUAL) 1 % (0-11.0); NEUTROPHILS % (MANUAL) 91 (42-76)
--- NOTE | 2016-11-13 07:17 | NUR ---
FUEL QUALITY TECH - P/C TO DR. WISEMAN RE: LACTIC ACID AT 3.5. STATUS UPDATE GIVEN RE: THE REST OF DAILY LAB VALUES. NO ORDERS REC'D. CONT. POC.
[2016-11-13] MEDS: MEGESTROL ACETATE SUSP 400 MG/10 ML UDC PO SCH ×2 (08:16→16:08)
[2016-11-13] MEDS: ACETYLCYSTEINE 20% ORAL SOLN 6,000 MG/30 ML VIAL PO SCH ×2 (08:16→20:44)
[2016-11-13] MEDS: AMIODARONE HCL 200 MG TABLET PO SCH ×3 (08:16→16:09)
[2016-11-13] MEDS: PANTOPRAZOLE 40 MG TABLET.DR PO SCH (08:16)
[2016-11-13] MEDS: METOCLOPRAMIDE HCL 10 MG/2 ML VIAL IV SCH ×3 (08:16→16:09)
[2016-11-13] MEDS: ASCORBIC ACID 500 MG TABLET PO SCH (08:16)
[2016-11-13] MEDS: ZINC SULFATE 220 MG CAPSULE PO SCH (08:16)
[2016-11-13] MEDS: MEROPENEM 500 MG in IV NS 0.9% 50 ML IV SCH ×2 (08:16→20:33)
[2016-11-13] MEDS: BOOST PLUS FOOD-CHOCLATE 237 ML BOX PO SCH ×3 (09:00→16:05)
[2016-11-13] MEDS: MULTIVITAMINS,THERAGRAN 1 UDTAB TABLET GT SCH (09:45)
[2016-11-13] MEDS: Z GUARD REMEDY 2 OZ OINT TP SCH (09:46)
[2016-11-13] MEDS: HYDROGEL DRESSING 90 GM TUBE TP SCH (09:46)
--- NOTE | 2016-11-13 11:30 | NUR ---
DR. WISEMAN ON THE UNIT. ORDERS IVF NS AT 60ML/H INSTEAD OF 100ML/H. HE DISCUSSES THE PT'S CONDITION WITH ONE OF THE DAUGHTERS AT BEDSIDE, HE RECOMMENDS FOR A GTUBE PLACEMENT WHILE THEY DO THE EGD TOMORROW. THE DAUGHTER IS IN AGREEMENT, BUT REQUESTING THAT THE PLAN BE DISCUSSED WITH THE REST OF THE FAMILY. Addendum: 11/13/16 at 1453 by SAHIL WALDEN RN CORRECTION: ORDERS FOR IVF NS AT 40ML/HR
[2016-11-13] MEDS: IV NS 0.9% 1,000 ML IV PRN (11:40)
--- NOTE | 2016-11-13 14:26 | NUR ---
11/13/16 - Collect at least 500cc urine sample for urine cytology - Dr. Vasquez I CALLED LAB FOR A 24 HOUR URINE SPECIMEN BOTTLE (WITHOUT ADDITIVES) THEY STATE THEY WILL TRY AND BRING ONE UP. Addendum: 11/13/16 at 1451 by SAHIL AWLDEN RN SPOKE WITH LAB WHO STATED THAT THEY WILL CALL LAB [facility] TO SPECIFY WHAT KIND OF BOTTLE WILL BE NEEDED FOR A URINE SPECIMEN FOR URINE CYTOLOGY AND WHETHER IT WILL NEED ADDITIVES OR NOT, WILL CALL BACK LAB TO DC AND TRY AND GET THE CORRECT CONTAINER FOR THE URINE SPECIMEN.
--- NOTE | 2016-11-13 14:27 | NUR ---
DR. PAT ON THE UNIT, NOTIFIED HIM OF DR. WISEMAN'S RECOMMENDATION FOR PEG TUBE PLACEMENT WHICH THE FAMILY AGREES WITH AND SIGN'S CONSENTS FOR. HE ACKNOWLEDGES AND WILL PERFORM THE EGD TOMORROW HE DOES NOT KNOW WHAT TIME, HE ORDERS TO KEEP HER NPO AFTER MIDNIGHT AND OBTAIN CONSENTS.
--- NOTE | 2016-11-13 14:31 | NUR ---
DR. MATUTE SPEAKS DIRECTLY WITH THE RADIOLOGIST AND RECOMMENDS TO HAVE UROLOGIST CONSULT. SHE STATES THAT SHE SPOKE DIRECTLY WITH THE RADIOLOGIST AND CONCERNING THE FLUID ABSCESS WHICH MAY BE CAUSED BY A PERFORATED BLADDER. DR. WISEMAN NOTIFIED, BUT WE DO NOT HAVE A UROLOGIST AT THE HOSPITAL AND WE CANNOT TRANSFER TO [facility] AT THIS TIME BECAUSE PT IS SCHEDULED FOR A EGD WITH PEG TUBE PLACEMENT TOMORROW WITH DR. PAT. DR. WISEMAN SAID TO TRY DEYANIRA SHAH, BUT THE DOES NOT HAVE PRIVILEGES AT [facility].
[2016-11-13] MEDS: DOCUSATE SODIUM LIQ 100 MG/10 ML UDC GT SCH (16:08)
[2016-11-13] MEDS ORDERED: ACETYLCYSTEINE 20% SOLN 800 MG/4 ML VIAL ONE (20:31)
[2016-11-13] MEDS: LACTULOSE 10 G/15 ML UDC (PYXIS) PO SCH (20:32)
[2016-11-13] MEDS ORDERED: FIBERSOURCE HN 1,000 ML BOTTLE GT PRN (21:00)
[2016-11-13] MEDS: MIRTAZAPINE 15 MG TABLET PO SCH (21:27)
[2016-11-13] MEDS: MORPHINE SULFATE INJ 2 MG/ML DISP.SYRIN IM PRN (21:52)
[2016-11-13] MEDS: VANCOMYCIN 0.75 GM in IV D5W 250 ML IV SCH (23:34)
[2016-11-14] VITALS (51 sets, daily range): BP systolic 88–129; BP diastolic 50–89
--- NOTE | 2016-11-14 | NUR ---
HEALTH ADVOCATE -PT.IS SCHEDULED FOR PEG PLACEMENT & EGD TODAY BY DR. GAYLE. CONSENTS ARE IN FRONT OF CHART, W/PRE - OP CHECKLIST. JONNY LOPEZ'D AT [place]. PT.WAS C/O BACK PAIN EARLIER. MORPHINE SULFATE 2 MG IVP WAS ADM. FOR PAIN. PT.IS NOW RESTING W/EYES CLOSED & EASILY AROUSABLE. 500 CC OF URINE COLLECTED FOR URINE CYTOLOGY. COTTO CATH TO GRAVITY. AFEBRILE. CONT.POC.
--- NOTE | 2016-11-14 00:03 | NUR ---
CHART PICKER.PT FEEDING HELD. BREATHING WITH ACCESSARY MUSCLES.
--- NOTE | 2016-11-14 01:39 | NUR ---
SILO MAN - PT. IS TEARING UP & C/O OF BACK PAIN. NORCO 5-325/NGT W/ 30CC/H20 ADM FOR PAIN. PT.IS NOW NPO. CONT.POC.
[2016-11-14] MEDS: HYDROCODONE/APAP 5/325MG 1 EACH TABLET PO PRN (01:46)
[2016-11-14 05:02] LABS: BASOPHILS % (AUTO) 0.1 % (0.0-2.0); EOSINOPHILS # (AUTO) 0.1 /CMM (0.0-0.7); EOSINOPHILS % (AUTO) 0.4 % (0.0-6.0); HEMATOCRIT 24 % (33-45); HEMOGLOBIN 8.5 g/dL (11.5-14.8); LYMPHOCYTES % (AUTO) 5.8 % (20.0-44.0); MEAN CORPUSCULAR HEMOGLOBIN 36 PG (26.0-33.0); MEAN CORPUSCULAR HGB CONC 36 g/dl (31.0-36.0); MEAN CORPUSCULAR VOLUME 101 fL (82-100); MONOCYTES # (AUTO) 0.4 /CMM (0.1-1.30); MONOCYTES % (AUTO) 2.3 % (2.0-12.0); NEUTROPHILS # (AUTO) 15.1 /CMM (1.8-8.9); NEUTROPHILS % (AUTO) 91.4 % (43.0-81.0); PLATELET COUNT (AUTO) 161 /CMM (150-450); RDW COEFFICIENT OF VARIATION 15.1 (11.5-15.0); RED BLOOD CELL COUNT(AUTO) 2.35 MIL/uL (4.0-5.2); WHITE BLOOD COUNT (AUTO) 16.5 K/uL (4.3-11.0)
[2016-11-14 05:24] LABS: ALANINE AMINOTRANSFERASE 19 U/L (12-78); ALKALINE PHOSPHATASE 188 U/L (46-116); ASPARTATE AMINOTRANSFERASE 28 U/L (15-37); BILIRUBIN,TOTAL 1.8 mg/dL (0.2-1.0); CALCIUM, SERUM 7.3 mg/dL (8.5-10.1); CARBON DIOXIDE 17 mmol/L (21-32); CHLORIDE 105 mmol/L (98-107); CREATININE 0.9 mg/dL (0.6-1.3); GLUCOSE 114 mg/dL (74-106); MAGNESIUM 1.8 mg/dL (1.8-2.4); PHOSPHORUS 2.5 mg/dL (2.5-4.9); POTASSIUM 4.2 mmol/L (3.5-5.1); SODIUM SERUM 133 mmol/L (136-145); TOTAL PROTEIN, SERUM 4.8 g/dL (6.4-8.2); UREA NITROGEN, BLOOD 15 mg/dL (7-18)
[2016-11-14 05:34] LABS: ALBUMIN 1.1 g/dL (3.4-5.0)
[2016-11-14 05:45] LABS: BAND % (MANUAL) 1 % (0.0-5.0); EOSINOPHILS % (MANUAL) 1 % (0-4); LYMPHOCYTES % (MANUAL) 5 % (16-48); MONOCYTES % (MANUAL) 3 % (0-11.0); NEUTROPHILS % (MANUAL) 90 (42-76)
[2016-11-14] MEDS: BLOOD SUGAR DIAGNOSTIC 1 EACH STRIP IN SCH ×6 (06:00→23:01)
[2016-11-14] MEDS: INSULIN REGULAR, HUMAN 100 UNIT/ML 3 ML VIAL SQ PRN (06:23)
--- NOTE | 2016-11-14 07:05 | NUR ---
ICU INITIAL NOTE RECEIVED PT IN BED, LETHARGIC AT TIMES, CALL LIGHT ANSWER QUESTIONS, FOLLOWS COMMANDS AT TIMES, PT IS ON BEDSIDE MONITOR SHOWING ST @ 127 BPM, NO C/O OF DISCOMFORT OR CHEST PAIN AT THIS TIME, PT HAS L NARE NG, CLAMPED AT THIS TIME, PATENT/INTACT, FLUSHING WELL, PT IS RA, SATING WELL, NO S/S OF RESP.DISTRESS OR SOB NOTED AT THIS TIME, PT HAS CAREN PICC LINE, RUNNING NS @ 40ML/HR,C/D/I/PATENT, FLUSHING WELL, NO S/S OF INFECTION/ INFILTRATION NOTED AT THIS TIME, PT HAS BILATERAL WRIST RESTRAINTS, RELEASED AND SKIN CHECK COMPLETED, PT IS NOTED WITH SKIN ISSUES, TREATMENTS ACK, PT HAS F/C DRAINING MINIMAL JERICA URINE TO GRAVITY, PT IS SCHEDULED TO HAVE EGD AND PEG PLACEMENT TODAY, ALL CONSENTS SIGNED, CHECKLIST COMPLETED BY GENERAL TELLER, ALL SAFETY MEASURES IN PLACE AT ALL TIMES, CALL LIGHT WITHIN EASY REACH, WILL MONITOR PT CLOSELY FOR CHANGES
--- NOTE | 2016-11-14 07:40 | NUR ---
ICU NOTE OR TEAM AT BEDSIDE, DR. PAT HERE, PT WAS TAKEN TO OR, FAMILY INFORMED
[2016-11-14 08:11] LABS: *SPE A/G RATIO 0.6 (0.7-1.7); *SPE ALBUMIN 1.8 g/dL (2.9-4.4); *SPE ALPHA-1-GLOBULIN 0.3 g/dL (0.0-0.4); *SPE ALPHA-2-GLOBULIN 0.5 g/dL (0.4-1.0); *SPE BETA GLOBULIN 0.6 g/dL (0.7-1.3); *SPE GLOBULIN, TOTAL 2.8 g/dL (2.2-3.9); *SPE M-SPIKE Not Observed g/dL (Not Observed); *SPE PROTEIN TOTAL 4.6 g/dL (6.0-8.5); *SPEGAMMA GLOBULIN 1.4 g/dL (0.4-1.8)
--- NOTE | 2016-11-14 08:28 | NUR ---
ICU NOTE RECEIVED PT BACK FROM OR, PAT AT BEDSIDE, VSS TEMP 97.3, HR 123 BPM, O2 91% R: 24 BP 121/69, PT C/O OF PAIN AT THIS TIME, WILL GIVE PAIN MEDICATION, NEW ORDERS RECEIVED, GTUBE PLACED, ONLY USE GTUBE FOR MEDS ONLY, FEEDING TO BE STARTED @ 1999, WILL CLOSELY MONITOR PT Addendum: 11/14/16 at 0836 by SHEELA SERNA RN ADD: NGT WAS REMOVED BY
[2016-11-14] MEDS: IV NS 0.9% 1,000 ML IV PRN (08:52)
[2016-11-14] MEDS: MEROPENEM 500 MG in IV NS 0.9% 50 ML IV SCH ×2 (08:52→22:21)
[2016-11-14] MEDS: ZINC SULFATE 220 MG CAPSULE PO SCH (08:53)
[2016-11-14] MEDS: PANTOPRAZOLE 40 MG TABLET.DR PO SCH (08:53)
[2016-11-14] MEDS: AMIODARONE HCL 200 MG TABLET PO SCH ×3 (08:53→17:19)
[2016-11-14] MEDS: LACTULOSE 10 G/15 ML UDC (PYXIS) PO SCH ×2 (08:53→22:21)
[2016-11-14] MEDS: MULTIVITAMINS,THERAGRAN 1 UDTAB TABLET GT SCH (08:53)
[2016-11-14] MEDS: METOCLOPRAMIDE HCL 10 MG/2 ML VIAL IV SCH ×3 (08:53→17:18)
[2016-11-14] MEDS: MEGESTROL ACETATE SUSP 400 MG/10 ML UDC PO SCH (08:53)
[2016-11-14] MEDS: DOCUSATE SODIUM LIQ 100 MG/10 ML UDC GT SCH ×2 (08:53→17:18)
[2016-11-14] MEDS: ASCORBIC ACID 500 MG TABLET PO SCH (08:53)
[2016-11-14] MEDS: Z GUARD REMEDY 2 OZ OINT TP SCH (08:55)
[2016-11-14] MEDS: BOOST PLUS FOOD-CHOCLATE 237 ML BOX PO SCH ×2 (08:55→12:03)
[2016-11-14] MEDS: HYDROGEL DRESSING 90 GM TUBE TP SCH (08:55)
[2016-11-14] MEDS: MORPHINE SULFATE INJ 2 MG/ML DISP.SYRIN IM PRN (08:56)
--- NOTE | 2016-11-14 09:26 | NUR ---
ICU NOTE FAMILY AT BEDSIDE UPDATE OF PTS CONDITION, DR. DYE MADE ROUNDS, AWARE OF LABS AND RESULTS, NO NEW ORDERS AT THIS TIME
--- NOTE | 2016-11-14 09:44 | NUR ---
ICU NOTE PT STATING PT IS STILL IN PAIN THAT MORPHINE IS NOT WORKING, CALLED DR. WISEMAN CALLED, ORDERED DILAUDID 1MG Q6H, PRN, D/C MORPHINE
[2016-11-14] MEDS ORDERED: HYDROMORPHONE 1 MG/1 ML DISP.SYRIN IV PRN (10:00)
[2016-11-14] MEDS: ACETYLCYSTEINE 20% ORAL SOLN 6,000 MG/30 ML VIAL PO SCH ×2 (10:01→21:00)
--- NOTE | 2016-11-14 12:30 | NUR ---
ICU NOTE DR. WISEMAN MADE ROUNDS, AWARE OF ALL LABS AND RESULTS, ALL NEW ORDERS ACK AND CARRIED OUT, SPOKE WITH KIRT AND JANETTE AT BEDSIDE. INFORMED MD DAUGHTER KORY WANTS A UPDATE WILL CALL HER.
[2016-11-14] MEDS ORDERED: ANESTHESIA TRAY IN PYXIS 1 EA TRAY MC ONE ×2 (12:39→12:48)
[2016-11-14] MEDS: IV D5/ 0.9% NACL 1,000 ML IV PRN (12:57)
[2016-11-14] MEDS ORDERED: FUROSEMIDE 40 MG/4 ML VIAL IV ONE (13:00)
--- NOTE | 2016-11-14 14:15 | NUR ---
ICU NOTE URINE COLLECTED AND SENT TO LAB
--- NOTE | 2016-11-14 14:43 | NUR ---
ICU NOTE DR. MATUTE MADE ROUNDS, SPOKE WITH FAMILY, ANSWERED ALL QUESTIONS AND CONCERNS
--- NOTE | 2016-11-14 15:30 | NUR ---
ICU/RN PT HR WENT TO 150-160 A-FLUTTER. BP STABLE.DR PEREYRA NOTIFIED.DIGOXIN 0.25 IV ORDERED ,ONE TIME DOSE .AND SECOND DOSE CAN BE GIVEN AT MIDNIGHT.CONTINUE MONITORING FAMILY AT BEDSIDE.
[2016-11-14] MEDS: HYDROMORPHONE 1 MG/1 ML DISP.SYRIN IV PRN (15:44)
[2016-11-14] MEDS ORDERED: DIGOXIN INJ 0.5 MG/2 ML AMPUL IV ONE (16:00)
--- NOTE | 2016-11-14 16:17 | NUR ---
ICU NOTE DILAUDID GIVEN, DIGOXIN GIVEN, HR 150'S. PT REASSESSED HR 110 BPM, PT BP 91/53, FAMILY AT BEDSIDE
--- NOTE | 2016-11-14 17:48 | NUR ---
ICU NOTE FAMILY REFUSED ACCU CHECK, EDUCATED FAMILY, STILL REFUSING
--- NOTE | 2016-11-14 17:49 | NUR ---
ICU NOTE FAMILY REFUSED COMPLETE BED BATH, GAVE RODGER CARE AND ORAL CARE ONLY Addendum: 11/14/16 at 1824 by SHEELA SERNA RN FAMILY CHANGED MIND REGARDING ACCU CHECK, ACCU CHECK DONE, BS 128
[2016-11-14] MEDS: GLYTROL 1,000 ML BAG GT PRN (19:42)
--- NOTE | 2016-11-14 20:02 | NUR ---
DISPATCHER CHIEF COAL SLURRY. INITIAL ASSESSMENT RECEIVED THE PT REST ON THE BED. PT IS SLEEPING. DAY RN DILAUDID GIVEN.MAINTENANCE AND OPERATIONS SUPERVISOR SHOWING NSR. IV RT UPPER ARM PICC LINE IVF D5NS 50ML/H. OXYGEN 2.5L VIA NASAL CANNULA. SAT 98%. NO ACUTE DISTRESS NOTED, FC PATENT. GT FEEDING STARTED 20ML/H. GOAL IS 65ML/H. HOB ELEVATED. TURN AND REPOSITION Q2H. WILL CONTINUE TO MONITOR VITALS.
[2016-11-14] MEDS: MIRTAZAPINE 15 MG TABLET PO SCH (22:00)
[2016-11-14] MEDS ORDERED: ACETYLCYSTEINE 20% SOLN 800 MG/4 ML VIAL ONE (22:25)
--- NOTE | 2016-11-14 22:53 | NUR ---
field horticultural specialty grower. pt is vet lethargic, shortness of breath abg done. will continue to monitor.
--- NOTE | 2016-11-14 23:57 | NUR ---
CORRESPONDENCE SECTION SUPERVISOR: OVERRIDES MUCOMYST NOT GIVEN, RETURNED BACK TO OMNICELL DUE TO DOSE NOT MATCHING WITH ACTUALLY ORDERED BY MD. WILL CALL ETHYL BLENDER TO BRING IT.
[2016-11-14] MEDS: VANCOMYCIN 0.75 GM in IV D5W 250 ML IV SCH (23:58)
[2016-11-15] VITALS (64 sets, daily range): BP systolic 79–134; BP diastolic 43–84
[2016-11-15] MEDS ORDERED: DIGOXIN INJ 0.5 MG/2 ML AMPUL IV ONE
[2016-11-15] MEDS ORDERED: ACETYLCYSTEINE 20% ORAL SOLN 6,000 MG/30 ML VIAL ONE (00:11)
--- NOTE | 2016-11-15 00:31 | NUR ---
SAP PI DEVELOPER MUCOMYST NOT GIVEN, NOT AVAILABLE
[2016-11-15] MEDS: HYDROMORPHONE 1 MG/1 ML DISP.SYRIN IV PRN ×2 (01:10→09:30)
--- NOTE | 2016-11-15 01:45 | NUR ---
DIPPING MACHINE OPERATOR. PT LETHARGIC, HEART RATE 132. S TACH. TACHYPNEIC BREATHING WITH ACCESSARY MUSCLES. CALLED ER MD ADRIAN X3 FOR EVALUATE THE PT. MD NOT COME AND EVALUATE THE PT. I CALLED HOSPITALITY AMBASSADOR EULOGIO AT BED SIDE. , EULOGIO CALLED ER MD , DR ADRIAN ORDERED BIPAP. WILL CONTINUE TO MONITOR.
--- NOTE | 2016-11-15 01:51 | NUR ---
EVENT HOST. PT IS STILL LETHARGIC DEEP BREATHING. ABG DONE PO2 77. OXYGEN 6L VIA MASK STARTED. HEART RATE 125. CALLED ER MD FOR EVALUATE THE PT. MD NOT COME. I SPOKE WITH TEENAGE PROGRAM DIRECTOR ORESTES. . I PAGED DR WISEMAN , CALLED BACK. MD AWARE PT SITUATION. I CALLED FAMILY SPOKE WITH KORY. HE AGREED IF PT NEED INTUBATION.
--- NOTE | 2016-11-15 01:59 | NUR ---
CLINICAL RESEARCH MONITOR INJ DILAUDID TAKEN. NOT ADMINISTERED, WASTED WITH INK JET OPERATOR ED.
--- NOTE | 2016-11-15 02:40 | NUR ---
FILM LIBRARY CLERK. OFFSET PRESS OPERATOR EULOGIO AT BED SIDE. CALLED ER MD ORELLANA. CAME AT 0250. CHEST X RAY DONE, DR ORELLANA ORDERED BIPAP. RT ANGELA PLACED BIPAP. SETTINGS 17/5, RATE 8, FIO2 45%. WILL CONTINUE TO MONITOR VITALS.
--- NOTE | 2016-11-15 03:07 | NUR ---
ANALYSIS LEAD. 2ND TIME PAGED DR WISEMAN. . UP DATE GIVEN. MD ORDERED CALL ER MD AND EVALUATE THE PT FOR INTUBATION.
--- NOTE | 2016-11-15 03:25 | NUR ---
RT PT PLACED ON BIPAP PER MD ORELLANA ORDERS. PT TOLERATING SETTING WELL. WILL CONTINUE TO MONITOR AND FOLLOW UP WITH ABG. ALARMS SET AND AUDIBLE AMBU BAG AT HOB. Addendum: 11/15/16 at 0327 by ANGELA BANSAL RT Amended: Links added.
[2016-11-15 04:43] LABS: BASOPHILS % (AUTO) 0.1 % (0.0-2.0); EOSINOPHILS # (AUTO) 0.1 /CMM (0.0-0.7); EOSINOPHILS % (AUTO) 0.5 % (0.0-6.0); HEMATOCRIT 28 % (33-45); HEMOGLOBIN 9.8 g/dL (11.5-14.8); LYMPHOCYTES % (AUTO) 4.7 % (20.0-44.0); MEAN CORPUSCULAR HEMOGLOBIN 34 PG (26.0-33.0); MEAN CORPUSCULAR HGB CONC 35 g/dl (31.0-36.0); MEAN CORPUSCULAR VOLUME 99 fL (82-100); MONOCYTES # (AUTO) 0.5 /CMM (0.1-1.30); MONOCYTES % (AUTO) 2.4 % (2.0-12.0); NEUTROPHILS # (AUTO) 19.3 /CMM (1.8-8.9); NEUTROPHILS % (AUTO) 92.3 % (43.0-81.0); PLATELET COUNT (AUTO) 183 /CMM (150-450); RDW COEFFICIENT OF VARIATION 14.7 (11.5-15.0); RED BLOOD CELL COUNT(AUTO) 2.87 MIL/uL (4.0-5.2); WHITE BLOOD COUNT (AUTO) 20.9 K/uL (4.3-11.0)
[2016-11-15 05:12] LABS: CALCIUM, SERUM 7.7 mg/dL (8.5-10.1); CARBON DIOXIDE 19 mmol/L (21-32); CHLORIDE 104 mmol/L (98-107); GLUCOSE 180 mg/dL (74-106); MAGNESIUM 1.6 mg/dL (1.8-2.4); PHOSPHORUS 3.3 mg/dL (2.5-4.9); SODIUM SERUM 134 mmol/L (136-145); UREA NITROGEN, BLOOD 15 mg/dL (7-18)
[2016-11-15] MEDS: BLOOD SUGAR DIAGNOSTIC 1 EACH STRIP IN SCH ×3 (05:43→17:51)
[2016-11-15] MEDS: INSULIN REGULAR, HUMAN 100 UNIT/ML 3 ML VIAL SQ PRN ×2 (05:47→13:58)
[2016-11-15 06:14] LABS: BAND % (MANUAL) 2 % (0.0-5.0); LYMPHOCYTES % (MANUAL) 5 % (16-48); MONOCYTES % (MANUAL) 2 % (0-11.0); NEUTROPHILS % (MANUAL) 91 (42-76)
--- NOTE | 2016-11-15 06:46 | NUR ---
ROLLING UP MACHINE OPERATOR. AM CARE, ORAL CARE, BED BATH GIVEN. LINEN CHANGED, REMAINING SAME BIPAP SETTING TOLERATED WELL. SAT 98%. WELFARE CASE WORKER SHOWING S TACH. IV RT UPPER ARM PICC LINE. IVF D5NS 50ML/H. FC PATENT, URINE DRAINING. GT CLAMPED. HOB ELEVATED, TURN AND REPOSITION Q2H. WILL CONTINUE TO MONITOR VITALS.
[2016-11-15] MEDS: Magnesium 1GM/D5W 100ML PREMIX 100 ML IV SCH ×2 (08:53→10:15)
[2016-11-15] MEDS: DOCUSATE SODIUM LIQ 100 MG/10 ML UDC GT SCH ×2 (09:00→17:50)
[2016-11-15] MEDS: PANTOPRAZOLE 40 MG TABLET.DR PO SCH (09:00)
[2016-11-15] MEDS: LACTULOSE 10 G/15 ML UDC (PYXIS) PO SCH ×2 (09:00→20:01)
[2016-11-15] MEDS: ZINC SULFATE 220 MG CAPSULE PO SCH (09:00)
[2016-11-15] MEDS: THIAMINE HCL 100 MG TABLET PO SCH (09:00)
[2016-11-15] MEDS: ASCORBIC ACID 500 MG TABLET PO SCH (09:00)
[2016-11-15] MEDS: AMIODARONE HCL 200 MG TABLET PO SCH ×3 (09:01→17:50)
[2016-11-15] MEDS: MULTIVITAMINS,THERAGRAN 1 UDTAB TABLET GT SCH (09:02)
[2016-11-15] MEDS: METOCLOPRAMIDE HCL 10 MG/2 ML VIAL IV SCH ×3 (09:10→17:51)
[2016-11-15] MEDS: MEROPENEM 500 MG in IV NS 0.9% 50 ML IV SCH ×2 (09:10→20:01)
[2016-11-15] MEDS: ACETYLCYSTEINE 20% ORAL SOLN 6,000 MG/30 ML VIAL PO SCH ×2 (09:11→21:23)
[2016-11-15] MEDS: Z GUARD REMEDY 2 OZ OINT TP SCH (09:12)
[2016-11-15] MEDS: HYDROGEL DRESSING 90 GM TUBE TP SCH (09:12)
[2016-11-15] MEDS: ONDANSETRON HCL/PF 4 MG/2 ML VIAL IV PRN (09:30)
--- NOTE | 2016-11-15 09:30 | NUR ---
PT OFF BIPAP NOW. VSS. DAUGHTER ELIDA AT BEDSIDE STATES LI HER MORTER INDICATED PAIN AND NAUSEA. PT MEDICATED WITH 0.5 MG OF DILAUDID AND ZOFRAN. FAMILY UPDATED ON PROGRESS. MAG REPLACEMENT IN PROGRESS.
[2016-11-15] MEDS: IV D5/ 0.9% NACL 1,000 ML IV PRN (10:36)
[2016-11-15 10:57] LABS: INR 1.31 (0.87-1.13); PROTHROMBIN TIME 14.3 SECS (9.5-12.7)
[2016-11-15 10:58] LABS: D-DIMER 4.45 mg/L(FEU (0.17-0.50)
[2016-11-15 18:56] LABS: APPEARANCE,URINE CLOUDY (CLEAR); BILIRUBIN,URINE 1+ (NEGATIVE); BLOOD, URINE NEGATIVE Ery/uL (NEGATIVE); COLOR,URINE YELLOW (YELLOW); KETONES,URINE TRACE (NEGATIVE); LEUKOCYTE ESTERASE ,URINE TRACE (NEGATIVE); NITRITE, URINE NEGATIVE (NEGATIVE); PH,URINE 5.5 (5.0-8.0); PROTEIN,URINE 1+ mg/dl (NEGATIVE); UGLUCOSE NEGATIVE (NEGATIVE)
[2016-11-15 19:03] LABS: BACTERIA,URINE Rare /HPF (None Seen); RBC,URINE 0-2 /HPF (0-2); SQUAMOUS EPITHELIAL CELL,UR Few /HPF (None Seen); URINE AMORPHOUS URATE Moderate /HPF (None Seen)
--- NOTE | 2016-11-15 20:00 | NUR ---
WOODS LABORER - NOTES - RECEIVED PT IN BED, PT IS AWAKE, ALERT. PT IS ON 3L NASAL CANNULA TOLERATING WELL 02SAT 99%. PT IS IN SR HR 90S. PT HAS A NEW PEG TUBE WITH GLYTROL AT 60 ML/HR, GOAL 65 ML/HR, PT HAS 180 RESIDUALS WILL HOLD FOR 1 HOUR AND REASSESS. ACCUCHECK Q6. PT HAS F/C WITH JERICA COLORED URINE MINIMAL AMOUNT. PT HAS CAREN PICC LINE WITH RED PORT DRAWING BLOOD. WILL CONTINUE TO MONITOR
[2016-11-15] MEDS: IV NS 0.9% 250 ML IV PRN (20:15)
[2016-11-15] MEDS: MIRTAZAPINE 15 MG TABLET PO SCH (21:23)
[2016-11-15] MEDS: VANCOMYCIN 0.75 GM in IV D5W 250 ML IV SCH (23:02)
[2016-11-16] VITALS (32 sets, daily range): BP systolic 99–134; BP diastolic 48–77
--- NOTE | 2016-11-16 | NUR ---
PT NOT TOLERATING TF, RESIDUALS OF 300 ML, PT ALREADY ON REGLAN TID, WILL HOLD TF FOR NOW
[2016-11-16] MEDS: BLOOD SUGAR DIAGNOSTIC 1 EACH STRIP IN SCH ×5 (00:10→23:59)
[2016-11-16] MEDS: INSULIN REGULAR, HUMAN 100 UNIT/ML 3 ML VIAL SQ PRN (00:18)
[2016-11-16 05:19] LABS: CALCIUM, SERUM 7.4 mg/dL (8.5-10.1); CARBON DIOXIDE 21 mmol/L (21-32); CHLORIDE 106 mmol/L (98-107); CREATININE 0.9 mg/dL (0.6-1.3); GLUCOSE 102 mg/dL (74-106); POTASSIUM 3.2 mmol/L (3.5-5.1); SODIUM SERUM 136 mmol/L (136-145); UREA NITROGEN, BLOOD 14 mg/dL (7-18)
[2016-11-16] MEDS: HYDROMORPHONE 1 MG/1 ML DISP.SYRIN IV PRN (05:37)
--- NOTE | 2016-11-16 06:02 | NUR ---
GTF RESIDUALS DOWN TO 100 ML, BLOOD GLUCOSE 98, TF GLYTROL RESTARTED
[2016-11-16] MEDS ORDERED: POTASSIUM CHLORIDE 20 MEQ TAB.PRT.SR PO ONE ×2 (06:30→07:30)
[2016-11-16] MEDS ORDERED: FUROSEMIDE 20 MG/2 ML VIAL IV ONE (06:30)
[2016-11-16] MEDS ORDERED: FUROSEMIDE 20 MG/2 ML VIAL IV SCH (06:30)
--- NOTE | 2016-11-16 06:30 | NUR ---
DR WISEMAN CALLED AND NOTIFIED OF GTF RESIDUALS, AND LOW URINE OUTPUT, NEW ORDERS RECEIVED
[2016-11-16] MEDS ORDERED: FUROSEMIDE 20 MG/2 ML VIAL ONE (06:34)
[2016-11-16 06:35] LABS: EOSINOPHILS # (AUTO) 0.1 /CMM (0.0-0.7); EOSINOPHILS % (AUTO) 0.9 % (0.0-6.0); HEMATOCRIT 21 % (33-45); LYMPHOCYTES # (AUTO) 1.1 /CMM (0.8-4.8); LYMPHOCYTES % (AUTO) 7.5 % (20.0-44.0); MEAN CORPUSCULAR HEMOGLOBIN 38 PG (26.0-33.0); MEAN CORPUSCULAR HGB CONC 38 g/dl (31.0-36.0); MEAN CORPUSCULAR VOLUME 100 fL (82-100); MONOCYTES # (AUTO) 0.5 /CMM (0.1-1.30); MONOCYTES % (AUTO) 3.2 % (2.0-12.0); NEUTROPHILS # (AUTO) 13.3 /CMM (1.8-8.9); NEUTROPHILS % (AUTO) 88.4 % (43.0-81.0); PLATELET COUNT (AUTO) 142 /CMM (150-450); RDW COEFFICIENT OF VARIATION 15.2 (11.5-15.0); RED BLOOD CELL COUNT(AUTO) 2.08 MIL/uL (4.0-5.2); WHITE BLOOD COUNT (AUTO) 15.1 K/uL (4.3-11.0)
[2016-11-16] MEDS ORDERED: POTASSIUM CL. PREMIX PERIPHER. 50 ML IV SCH (07:46)
--- NOTE | 2016-11-16 09:00 | NUR ---
Over 200 ml of residual noted on am assessment. GTF placed on hold.
[2016-11-16] MEDS ORDERED: POTASSIUM CHLORIDE 20 MEQ POWDER PACKET PO ONE ×2 (09:30→18:00)
[2016-11-16] MEDS: ZINC SULFATE 220 MG CAPSULE PO SCH (10:17)
[2016-11-16] MEDS: DOCUSATE SODIUM LIQ 100 MG/10 ML UDC GT SCH ×2 (10:17→17:58)
[2016-11-16] MEDS: PANTOPRAZOLE 40 MG TABLET.DR PO SCH (10:17)
[2016-11-16] MEDS: LACTULOSE 10 G/15 ML UDC (PYXIS) PO SCH ×2 (10:17→21:00)
[2016-11-16] MEDS: ASCORBIC ACID 500 MG TABLET PO SCH (10:18)
[2016-11-16] MEDS: MULTIVITAMINS,THERAGRAN 1 UDTAB TABLET GT SCH (10:18)
[2016-11-16] MEDS: THIAMINE HCL 100 MG TABLET PO SCH (10:18)
[2016-11-16] MEDS: AMIODARONE HCL 200 MG TABLET PO SCH ×3 (10:19→17:58)
[2016-11-16] MEDS: POTASSIUM CL. PREMIX PERIPHER. 50 ML IV SCH ×4 (10:20→14:03)
[2016-11-16] MEDS: MEROPENEM 500 MG in IV NS 0.9% 50 ML IV SCH ×2 (10:24→21:00)
[2016-11-16] MEDS: METOCLOPRAMIDE HCL 10 MG/2 ML VIAL IV SCH ×3 (10:24→17:58)
[2016-11-16] MEDS: ACETYLCYSTEINE 20% ORAL SOLN 6,000 MG/30 ML VIAL PO SCH ×2 (10:24→21:00)
[2016-11-16] MEDS: Z GUARD REMEDY 2 OZ OINT TP SCH (10:39)
[2016-11-16] MEDS: HYDROGEL DRESSING 90 GM TUBE TP SCH (10:40)
[2016-11-16 15:03] LABS: ABG PCO2 23.5 mmHg (35.0-45.0); ABG PH 7.446 (7.350-7.450); ABG PO2 118.7 mmHg (75.0-100.0); AaDO2 175.4 mmHg; PEEP,BG 5 cm H2O; SITE, ABG Left Radial; VENT MODE, BG ST 17/5 R8 45%
[2016-11-16 15:03] LABS: ABG BASE EXCESS -6.7 mmol/L; ABG OXYGEN SATURATION 94.9 % (92.0-98.5); ABG PCO2 32.2 mmHg (35.0-45.0); ABG PH 7.361 (7.350-7.450); ABG PO2 77.3 mmHg (75.0-100.0); AaDO2 113.2 mmHg; COHb 0.7 % (0.5-1.5); MetHb 0.3 % (0.0-1.5); SITE, ABG Left Radial; VENT MODE, BG NC 3L
[2016-11-16 15:03] LABS: ABG BASE EXCESS -7.1 mmol/L; ABG OXYGEN SATURATION 95.4 % (92.0-98.5); ABG PCO2 31.3 mmHg (35.0-45.0); ABG PH 7.362 (7.350-7.450); AaDO2 107.5 mmHg; COHb 0.3 % (0.5-1.5); MetHb 0.2 % (0.0-1.5); O2Hb 94.9 % (94.0-97.0); SITE, ABG Right Radial
[2016-11-16] MEDS ORDERED: ACETYLCYSTEINE 10% 3,000 MG/30 ML VIAL NG ONE (16:30)
--- NOTE | 2016-11-16 16:30 | NUR ---
DR WISEMAN AT BEDSIDE, UPDATED ON PROGRESS.
[2016-11-16] MEDS ORDERED: POTASSIUM CHLORIDE 10 MEQ TABLET.SA PO ONE (17:00)
[2016-11-16] MEDS ORDERED: NA PHOS,M-B/NA PHOS,DI-BA 1 EA ENEMA RC PRN (17:00)
--- NOTE | 2016-11-16 17:45 | NUR ---
Manual disimpaction attempted. Unable to obtain significant amount of fecal matter due to soft consistency of stool. Dr Jimenez notified fleet enema ordered. order for kdur clarified with Dr. Jimenez ok to give additional 30meq in addition this am dose of 40 iv, ok to change to powder form.
--- NOTE | 2016-11-16 19:30 | NUR ---
Received patient in bed awake alert and oriented x 2.VS stable.SR.Hemodynamically stable. Denies pain or sob.O2 2L NC on sating 95%.GT feeding in progress residual 10 ml.HOB elevated at 35 degrees.NS infusing at TKO to isael picc line.Site intact.FC with minimal urine output. Incontinent of soft stools moderate amount.Kept clean and dry.Turned and repositioned offloading pressure points.Continue monitoring.
--- NOTE | 2016-11-16 20:30 | NUR ---
Patient family visiting and updated of patient status and plan of care.Verbalized understanding.
[2016-11-16] MEDS: MIRTAZAPINE 15 MG TABLET PO SCH (21:18)
[2016-11-16] MEDS: VANCOMYCIN 0.75 GM in IV D5W 250 ML IV SCH (23:00)
[2016-11-17] VITALS (35 sets, daily range): BP systolic 93–139; BP diastolic 49–67
[2016-11-17] MEDS: INSULIN REGULAR, HUMAN 100 UNIT/ML 3 ML VIAL SQ PRN
--- NOTE | 2016-11-17 | NUR ---
patient resting.VS stable.Turned and repositioned.
[2016-11-17 04:41] LABS: EOSINOPHILS # (AUTO) 0.2 /CMM (0.0-0.7); EOSINOPHILS % (AUTO) 1.3 % (0.0-6.0); HEMATOCRIT 23 % (33-45); HEMOGLOBIN 8.5 g/dL (11.5-14.8); LYMPHOCYTES # (AUTO) 0.9 /CMM (0.8-4.8); LYMPHOCYTES % (AUTO) 4.5 % (20.0-44.0); MEAN CORPUSCULAR HEMOGLOBIN 39 PG (26.0-33.0); MEAN CORPUSCULAR HGB CONC 38 g/dl (31.0-36.0); MEAN CORPUSCULAR VOLUME 104 fL (82-100); MONOCYTES # (AUTO) 0.7 /CMM (0.1-1.30); MONOCYTES % (AUTO) 3.9 % (2.0-12.0); NEUTROPHILS # (AUTO) 17.3 /CMM (1.8-8.9); NEUTROPHILS % (AUTO) 90.3 % (43.0-81.0); PLATELET COUNT (AUTO) 167 /CMM (150-450); RDW COEFFICIENT OF VARIATION 14.7 (11.5-15.0); RED BLOOD CELL COUNT(AUTO) 2.17 MIL/uL (4.0-5.2); WHITE BLOOD COUNT (AUTO) 19.1 K/uL (4.3-11.0)
[2016-11-17 04:53] LABS: CALCIUM, SERUM 7.2 mg/dL (8.5-10.1); CARBON DIOXIDE 21 mmol/L (21-32); CHLORIDE 107 mmol/L (98-107); CREATININE 0.9 mg/dL (0.6-1.3); GLUCOSE 108 mg/dL (74-106); POTASSIUM 4.6 mmol/L (3.5-5.1); SODIUM SERUM 138 mmol/L (136-145); UREA NITROGEN, BLOOD 15 mg/dL (7-18)
[2016-11-17] MEDS: BLOOD SUGAR DIAGNOSTIC 1 EACH STRIP IN SCH ×4 (05:53→23:50)
--- NOTE | 2016-11-17 06:00 | NUR ---
Patient resting.VS stable.BM X 3 moderate loose stool due to lactulose.Blood sugar monitored and coverage given per ss.GT feeding poorly tolerated due high residual.Awaiting CT of abdomen and pelvis.No acute distress noted.am Care done.Turned and repositioned.
[2016-11-17] MEDS: ONDANSETRON HCL/PF 4 MG/2 ML VIAL IV PRN (07:53)
[2016-11-17] MEDS: ASCORBIC ACID 500 MG TABLET PO SCH (08:04)
[2016-11-17] MEDS: PANTOPRAZOLE 40 MG TABLET.DR PO SCH (08:04)
[2016-11-17] MEDS: THIAMINE HCL 100 MG TABLET PO SCH (08:04)
[2016-11-17] MEDS: DOCUSATE SODIUM LIQ 100 MG/10 ML UDC GT SCH ×2 (08:04→17:54)
[2016-11-17] MEDS: METOCLOPRAMIDE HCL 10 MG/2 ML VIAL IV SCH ×3 (08:04→17:54)
[2016-11-17] MEDS: ZINC SULFATE 220 MG CAPSULE PO SCH (08:04)
[2016-11-17] MEDS: ACETYLCYSTEINE 20% ORAL SOLN 6,000 MG/30 ML VIAL PO SCH ×2 (08:04→21:00)
[2016-11-17] MEDS: AMIODARONE HCL 200 MG TABLET PO SCH ×3 (08:04→17:54)
[2016-11-17] MEDS: MULTIVITAMINS,THERAGRAN 1 UDTAB TABLET GT SCH (08:04)
[2016-11-17] MEDS: LACTULOSE 10 G/15 ML UDC (PYXIS) PO SCH ×2 (08:04→21:00)
[2016-11-17] MEDS: MEROPENEM 500 MG in IV NS 0.9% 50 ML IV SCH ×2 (08:05→21:00)
[2016-11-17] MEDS: Z GUARD REMEDY 2 OZ OINT TP SCH (08:05)
[2016-11-17] MEDS: HYDROGEL DRESSING 90 GM TUBE TP SCH (08:05)
--- NOTE | 2016-11-17 09:59 | NUR ---
CT ABDOMEN ORDERED FROM YESTERDAY, PT HAS BEEN ON TF OVERNIGHT. CONTACTED DR. WISEMAN AND DR. MATUTE ON THE UNIT TO DISCUSS PLAN FOR CT ABDOMEN AND PELVIS WITH CONTRAST. ORDERS TO KEEP PT NPO FOR 6 HRS ARE REQUIRED PER RADIOLOGY, DR. WISEMAN ORDERS TO START D5NS AT 50ML/HR WHILE THE PT'S TF ARE HELD FOR GLUCOSE SUPPORT AND HE IS AWARE THAT I WILL BE HOLDING MEDS THROUGH THE GTUBE. DR. MATUTE IS AWARE THAT CT ABDOMEN WILL BE CHECKED LATER THIS AFTERNOON APPROXIMATELY 4-5PM, SHE ORDERS TO FILL THE BLADDER WITH 300ML OF NS PRIOR TO THE PROCEDURE. CONSENTS SIGNED BY FAMILY KIRT AT BEDSIDE AFTER SHE IS UPDATED ABOUT THE PLAN OF CARE.
[2016-11-17] MEDS ORDERED: IV D5/ 0.9% NACL 1,000 ML IV ONE (10:00)
[2016-11-17] MEDS ORDERED: IV D5/ 0.9% NACL 1,000 ML IV PRN (10:30)
--- NOTE | 2016-11-17 11:30 | NUR ---
DR. WISEMAN ON THE UNIT, UPDATES FAMILY ABOUT PLAN FOR CT ABDOMEN TODAY AND EXPLAINS THE THORACENTESIS PROCEDURE. KIRT THE DAUGHTER AT BEDSIDE SIGNS CONSENT FOR BOTH PROCEDURES AFTER DISCUSSING WITH THE FAMILY. [employer] TECH IN RADIOLOGY NOTIFIED.
--- NOTE | 2016-11-17 13:16 | NUR ---
US TECH ON THE UNIT SCANS LUNG BUTLER TO SEE IF FLUID IS ABLE TO BE TAKEN OUT. FINISHES SCAN AND STATES SHE WILL SHOW THE RADIOLOGIST AND THEN CONFIRM WHETHER OR NOT THORACENTESIS CAN BE DONE, STATES SHE WILL CALL ME BACK.
--- NOTE | 2016-11-17 15:17 | NUR ---
US TECH CALLS BACK CONFIRMS WE WILL DRAIN SOME FLUID. CONSENTS ALREADY OBTAINED FOR THORACENTESIS, WAITING FOR DR. VELASQUEZ.
[2016-11-17] MEDS ORDERED: IOHEXOL-300 100 ML VIAL IV ONE (15:49)
[2016-11-17] MEDS ORDERED: IV NS 0.9% 250 ML IV ONE (15:49)
--- NOTE | 2016-11-17 16:15 | NUR ---
PT TAKEN DOWN TO CT.
[2016-11-17] MEDS ORDERED: HEPARIN INFUSION/D5W 500 ML IV PRN (17:30)
--- NOTE | 2016-11-17 17:35 | NUR ---
DR. WISEMAN CALLED ABOUT THE CT RESULTS SHOWING PE, HE ORDERS: FOR HEPARIN GTT PROTOCOL NON ACS VENOUS DOPPLERS OF LOWER LEG 1 UNIT PRBC FOLLOWED BY 20MG OF IV LASIX ORDERS PLACED.
[2016-11-17] MEDS ORDERED: CALMOSEPTINE OINTMENT TP PRN (18:00)
[2016-11-17] MEDS ORDERED: HEPARIN SODIUM, PORCINE 5000 UNITS/1 ML VIAL SQ ONE (18:30)
--- NOTE | 2016-11-17 19:30 | NUR ---
Received report from SACHIN Henry.Patient very drowsy open eyes to tactile stimuli.VS stable.SR. Hemodynamically stable.Respiration even and unlabored.With O2 2L NC sating 100%.GT feeding Glytrol infusing at 25 ml/hr residual 10 ml.HOB elevated.FC with small peggy urine.IV NS infusing at tko to isael picc line.Site intact.Turned and repositioned.No acute distress noted.Continue monitoring.
--- NOTE | 2016-11-17 20:05 | NUR ---
Patient PTT 34. Heparin bolus given and Heparin drip started 1150 units/hr per Heparin weight-based non ACS protocol.
[2016-11-17] MEDS: MIRTAZAPINE 15 MG TABLET PO SCH (22:03)
[2016-11-17] MEDS: HYDROMORPHONE 1 MG/1 ML DISP.SYRIN IV PRN (22:15)
--- NOTE | 2016-11-17 22:15 | NUR ---
Patient complaints of abdominal pain.Medicated with Dilaudid as prn.Turned and repositioned.Continue monitoring.
[2016-11-17] MEDS: VANCOMYCIN 0.75 GM in IV D5W 250 ML IV SCH (22:46)
--- NOTE | 2016-11-17 22:47 | NUR ---
Vancomycin Trough 23.Dose not given per protocol.
[2016-11-18] VITALS (38 sets, daily range): BP systolic 100–144; BP diastolic 41–80
[2016-11-18] MEDS ORDERED: FUROSEMIDE 20 MG/2 ML VIAL ONE (00:51)
[2016-11-18] MEDS ORDERED: FUROSEMIDE 20 MG/2 ML VIAL IV SCH (01:00)
[2016-11-18] MEDS ORDERED: FUROSEMIDE 20 MG/2 ML VIAL IV ONE (01:00)
--- NOTE | 2016-11-18 01:05 | NUR ---
PRBC 1 unit transfused without adverse effect followed by lasix 20 mg iv.VS stable.NAD noted.
[2016-11-18 04:36] LABS: BASOPHILS # (AUTO) 0.1 /CMM (0.0-0.2); BASOPHILS % (AUTO) 0.4 % (0.0-2.0); EOSINOPHILS # (AUTO) 0.1 /CMM (0.0-0.7); EOSINOPHILS % (AUTO) 0.5 % (0.0-6.0); HEMATOCRIT 30 % (33-45); HEMOGLOBIN 10.4 g/dL (11.5-14.8); LYMPHOCYTES # (AUTO) 1.3 /CMM (0.8-4.8); LYMPHOCYTES % (AUTO) 8.8 % (20.0-44.0); MEAN CORPUSCULAR HEMOGLOBIN 32 PG (26.0-33.0); MEAN CORPUSCULAR HGB CONC 34 g/dl (31.0-36.0); MEAN CORPUSCULAR VOLUME 92 fL (82-100); MONOCYTES # (AUTO) 0.3 /CMM (0.1-1.30); NEUTROPHILS # (AUTO) 13.5 /CMM (1.8-8.9); NEUTROPHILS % (AUTO) 88.3 % (43.0-81.0); PLATELET COUNT (AUTO) 174 /CMM (150-450); RDW COEFFICIENT OF VARIATION 17.1 (11.5-15.0); RED BLOOD CELL COUNT(AUTO) 3.29 MIL/uL (4.0-5.2); WHITE BLOOD COUNT (AUTO) 15.3 K/uL (4.3-11.0)
[2016-11-18 04:56] LABS: CALCIUM, SERUM 7.1 mg/dL (8.5-10.1); CARBON DIOXIDE 21 mmol/L (21-32); CHLORIDE 108 mmol/L (98-107); CREATININE 0.8 mg/dL (0.6-1.3); GLUCOSE 157 mg/dL (74-106); MAGNESIUM 1.9 mg/dL (1.8-2.4); PHOSPHORUS 3.7 mg/dL (2.5-4.9); POTASSIUM 3.9 mmol/L (3.5-5.1); SODIUM SERUM 139 mmol/L (136-145); UREA NITROGEN, BLOOD 14 mg/dL (7-18)
[2016-11-18] MEDS: BLOOD SUGAR DIAGNOSTIC 1 EACH STRIP IN SCH ×3 (06:10→17:35)
[2016-11-18] MEDS: INSULIN REGULAR, HUMAN 100 UNIT/ML 3 ML VIAL SQ PRN (06:13)
--- NOTE | 2016-11-18 06:20 | NUR ---
Patient resting.VS remains stable.AM care done.gt feeding well tolerated.Good urine output post Lasix.Heparin drip infusing at 1000 units/hr via isael picc line.Turned and repositioned.No distress noted.
--- NOTE | 2016-11-18 07:47 | NUR ---
ICU/RN INITIAL NOTES,AM RECEIVED REPORT FROM NIGHT NURSE. PT ALERT, AWAKE, FOLLOWS COMMANDS. PT ON 2LITERS NASAL CANULA, NO ACUTE DISTRESS NOTED. PT ON TELE, SINUS. GTUBE FEEDING INFUSING AT 25ML/HR, WILL INCREASE TOLERATED. RESIDUAL OF 10ML NOTED. COTTO IN PLACE, DRAINING YELLOW URINE. HEPARIN DRIP INFUSING VIA RIGHT UPPER ARM PICC LINE PER PROTOCOL, WILL ADJUST NEEDED. ONLY ONE PORT OF PICC LINE WORKS, WILL ATTEMPT TO FIX OTHER PORTS. ALL NEEDS WILL BE MET, SAFETY MEASURES TAKEN, BED IN LOW POSITION, SIDE RAILS UP, CALL LIGHT WITHIN REACH. PT ON LOW AIR LOSS MATTRESS, WILL CONTINUE TO TURN AND REPOSITION.
--- NOTE | 2016-11-18 08:15 | NUR ---
ICU/RN: PTT 49, PER PROTOCOL NO CHANGE. WILL CONTINUE TO MONITOR.
[2016-11-18] MEDS: MEROPENEM 500 MG in IV NS 0.9% 50 ML IV SCH (08:29)
[2016-11-18] MEDS: PANTOPRAZOLE 40 MG TABLET.DR PO SCH (08:29)
[2016-11-18] MEDS: MULTIVITAMINS,THERAGRAN 1 UDTAB TABLET GT SCH (08:29)
[2016-11-18] MEDS: LACTULOSE 10 G/15 ML UDC (PYXIS) PO SCH ×2 (08:29→21:53)
[2016-11-18] MEDS: DOCUSATE SODIUM LIQ 100 MG/10 ML UDC GT SCH ×2 (08:29→17:35)
[2016-11-18] MEDS: ASCORBIC ACID 500 MG TABLET PO SCH (08:29)
[2016-11-18] MEDS: METOCLOPRAMIDE HCL 10 MG/2 ML VIAL IV SCH ×3 (08:29→17:35)
[2016-11-18] MEDS: ZINC SULFATE 220 MG CAPSULE PO SCH (08:29)
[2016-11-18] MEDS: Z GUARD REMEDY 2 OZ OINT TP SCH (08:30)
[2016-11-18] MEDS: THIAMINE HCL 100 MG TABLET PO SCH (08:30)
[2016-11-18] MEDS: HYDROGEL DRESSING 90 GM TUBE TP SCH (08:30)
[2016-11-18] MEDS: AMIODARONE HCL 200 MG TABLET PO SCH ×3 (08:30→17:36)
[2016-11-18] MEDS: GLYTROL 1,000 ML BAG GT PRN (08:34)
[2016-11-18] MEDS: ACETYLCYSTEINE 20% ORAL SOLN 6,000 MG/30 ML VIAL PO SCH ×2 (09:10→23:11)
[2016-11-18] MEDS: IV NS 0.9% 250 ML IV PRN (09:24)
[2016-11-18] MEDS: VANCOMYCIN 500 MG in IV D5W 100 ML IV SCH (12:20)
--- NOTE | 2016-11-18 14:00 | NUR ---
ICU/RN: ROUNDS DR. WISEMAN AT BEDSIDE. DISCUSSED PLAN OF CARE. PER MD WE ARE TO STOP HEPARIN DRIP AND START PT ON PO ELIQUIS ORDERED. LABS REVIEWED. ALL NEW ORDERS WILL BE CARRIED OUT. PER OK TO DOWNGRADE PT TO EMILY.
[2016-11-18] MEDS: APIXABAN 5 MG TABLET PO SCH (18:07)
--- NOTE | 2016-11-18 18:44 | NUR ---
ICU/RN ENDING NOTES,AM REPORT WILL BE ENDORSED TO NIGHT NURSE FOR CONTINUATION OF CARE. ALL NEEDS MET. PT ON NASAL CANULA, NO DISTRESS NOTED. PENDING TRANSFER TO EMILY. PICC LINE IN PLACE, ALL LINES FLUSHED, GOOD BLOOD RETURN NOTED. GTUBE INFUSING AT 50 ML/HR, TOLERATING WELL, WILL CONTINUE TO ASSESS RESIDUAL AMOUNT. ALL NEEDS MET, SAFETY MEASURES TAKEN, BED IN LOW POSITION, SIDE RAILS UP, CALL LIGHT WITHIN REACH, PT TURNED AND REPOSITIONED, BED BATH GIVEN. PT AWAITING FOR ABDOMEN US/INTRAVAGINAL US. FAMILY OF PT AT BEDSIDE.
--- NOTE | 2016-11-18 19:55 | NUR ---
ICU/LUMBER CARRIER OPERATOR VAGINAL U/S COMPLETED AWAIT RESULTS, PT TOLERATED THIS WELL.
--- NOTE | 2016-11-18 21:30 | NUR ---
ZHANG MORALEZ GAVE CELL NUMBER [phone]
[2016-11-18] MEDS: MEROPENEM 1 G in IV NS 0.9% 100 ML IV SCH (21:34)
[2016-11-18] MEDS: MIRTAZAPINE 15 MG TABLET PO SCH (21:53)
--- NOTE | 2016-11-18 22:23 | NUR ---
JACE LOTT GIVEN CELL NUMBER [phone]
[2016-11-18] MEDS ORDERED: ACETYLCYSTEINE 20% ORAL SOLN 6,000 MG/30 ML VIAL ONE (22:56)
[2016-11-19] VITALS (19 sets, daily range): BP systolic 101–148; BP diastolic 55–81
--- NOTE | 2016-11-19 00:30 | NUR ---
ICU/AUTO WINDER BLOOD SUGAR IS 103, NO COVERAGE FOR THIS PER MD ORDERS. WILL MONITOR THE BLOOD SUGAR ORDERED
[2016-11-19] MEDS: BLOOD SUGAR DIAGNOSTIC 1 EACH STRIP IN SCH ×5 (00:45→23:09)
[2016-11-19] MEDS: HYDROMORPHONE 1 MG/1 ML DISP.SYRIN IV PRN (01:19)
--- NOTE | 2016-11-19 01:30 | NUR ---
ICU/PUTTY PATCHER PT COMPLAIN OF PAIN TO BACK, RATED 8/10. NOTIFY CHARGE NURSE. DILAUDID 0.25MG IVP GIVEN FOR THIS. PT WAS TURNED AND REPOSITIONED FOR COMFORT AND CARE.
[2016-11-19 04:42] LABS: BASOPHILS % (AUTO) 0.1 % (0.0-2.0); EOSINOPHILS # (AUTO) 0.2 /CMM (0.0-0.7); EOSINOPHILS % (AUTO) 1.7 % (0.0-6.0); HEMATOCRIT 25 % (33-45); HEMOGLOBIN 8.5 g/dL (11.5-14.8); LYMPHOCYTES # (AUTO) 0.9 /CMM (0.8-4.8); LYMPHOCYTES % (AUTO) 7.7 % (20.0-44.0); MEAN CORPUSCULAR HEMOGLOBIN 30 PG (26.0-33.0); MEAN CORPUSCULAR HGB CONC 33 g/dl (31.0-36.0); MEAN CORPUSCULAR VOLUME 91 fL (82-100); MONOCYTES # (AUTO) 0.4 /CMM (0.1-1.30); MONOCYTES % (AUTO) 3.4 % (2.0-12.0); NEUTROPHILS # (AUTO) 9.9 /CMM (1.8-8.9); NEUTROPHILS % (AUTO) 87.1 % (43.0-81.0); PLATELET COUNT (AUTO) 156 /CMM (150-450); RDW COEFFICIENT OF VARIATION 17.5 (11.5-15.0); RED BLOOD CELL COUNT(AUTO) 2.79 MIL/uL (4.0-5.2); WHITE BLOOD COUNT (AUTO) 11.4 K/uL (4.3-11.0)
[2016-11-19 04:54] LABS: CARBON DIOXIDE 25 mmol/L (21-32); CHLORIDE 107 mmol/L (98-107); CREATININE 0.7 mg/dL (0.6-1.3); GLUCOSE 90 mg/dL (74-106); POTASSIUM 3.9 mmol/L (3.5-5.1); SODIUM SERUM 138 mmol/L (136-145); UREA NITROGEN, BLOOD 12 mg/dL (7-18)
[2016-11-19 05:47] LABS: EOSINOPHILS % (MANUAL) 1 % (0-4); LYMPHOCYTES % (MANUAL) 18 % (16-48); MONOCYTES % (MANUAL) 4 % (0-11.0); NEUTROPHILS % (MANUAL) 77 (42-76)
--- NOTE | 2016-11-19 06:30 | NUR ---
ICU/FISH HATCHERY LABORER BLOOD SUGAR IS 88, NO COVERAGE FOR THIS PER MD ORDERS. WILL MONITOR THE BLOOD SUGAR ORDERED
--- NOTE | 2016-11-19 07:31 | NUR ---
INITIAL DOUBLING MACHINE OPERATOR NOTE RCVD PT AWAKE AND ALERT, SHOWING NO S/O DISTRESS OR C/O PAIN AT THIS TIME. SR ON TELE. ON RA AT THIS TIME. COTTO DRAINING J[place] COLORED URINE. CAREN PICC C/D/I/PATENT. NO S/O INFILTRATION/PHLEBITIS OBSERVED UPON FLUSHING. G-TUBE PLACEMENT VERIFIED BY AUSCULTATION/ASPIRATION. RESIDUAL 30ML OBTAINED. WILL CONTINUE TO MONITOR PT FOR SAFETY AND COMFORT. CALL LIGHT WITHIN REACH. BED IN LOW AND LOCKED POSITION.
[2016-11-19] MEDS: LACTULOSE 10 G/15 ML UDC (PYXIS) PO SCH ×2 (08:49→21:21)
[2016-11-19] MEDS: DOCUSATE SODIUM LIQ 100 MG/10 ML UDC GT SCH ×2 (08:49→17:18)
[2016-11-19] MEDS: ZINC SULFATE 220 MG CAPSULE PO SCH (08:49)
[2016-11-19] MEDS: ASCORBIC ACID 500 MG TABLET PO SCH (08:50)
[2016-11-19] MEDS: MULTIVITAMINS,THERAGRAN 1 UDTAB TABLET GT SCH (08:50)
[2016-11-19] MEDS: Z GUARD REMEDY 2 OZ OINT TP SCH (08:50)
[2016-11-19] MEDS: THIAMINE HCL 100 MG TABLET PO SCH (08:50)
[2016-11-19] MEDS: GLYTROL 1,000 ML BAG GT PRN (08:50)
[2016-11-19] MEDS: PANTOPRAZOLE 40 MG/PACK PACK GT SCH (08:50)
[2016-11-19] MEDS: AMIODARONE HCL 200 MG TABLET PO SCH ×3 (08:54→17:19)
[2016-11-19] MEDS: HYDROGEL DRESSING 90 GM TUBE TP SCH (08:55)
[2016-11-19] MEDS: METOCLOPRAMIDE HCL 10 MG/2 ML VIAL IV SCH ×3 (08:56→17:19)
[2016-11-19] MEDS: MEROPENEM 1 G in IV NS 0.9% 100 ML IV SCH ×2 (08:56→21:18)
[2016-11-19] MEDS: ACETYLCYSTEINE 20% ORAL SOLN 6,000 MG/30 ML VIAL PO SCH (09:00)
--- NOTE | 2016-11-19 11:30 | NUR ---
rn chen received patient from icu, awake alert oriented x 3 afebrile restrarted feeding residual noted complaints of leg pain, pain medication given
[2016-11-19 11:38] LABS: BASOPHILS % (AUTO) 0.1 % (0.0-2.0); EOSINOPHILS # (AUTO) 0.2 /CMM (0.0-0.7); EOSINOPHILS % (AUTO) 1.3 % (0.0-6.0); HEMATOCRIT 25 % (33-45); HEMOGLOBIN 9.4 g/dL (11.5-14.8); LYMPHOCYTES # (AUTO) 0.9 /CMM (0.8-4.8); LYMPHOCYTES % (AUTO) 6.5 % (20.0-44.0); MEAN CORPUSCULAR HEMOGLOBIN 36 PG (26.0-33.0); MEAN CORPUSCULAR HGB CONC 37 g/dl (31.0-36.0); MEAN CORPUSCULAR VOLUME 96 fL (82-100); MONOCYTES # (AUTO) 0.3 /CMM (0.1-1.30); MONOCYTES % (AUTO) 2.3 % (2.0-12.0); NEUTROPHILS # (AUTO) 11.8 /CMM (1.8-8.9); NEUTROPHILS % (AUTO) 89.8 % (43.0-81.0); PLATELET COUNT (AUTO) 163 /CMM (150-450); RDW COEFFICIENT OF VARIATION 18.1 (11.5-15.0); WHITE BLOOD COUNT (AUTO) 13.2 K/uL (4.3-11.0)
[2016-11-19] MEDS: APIXABAN 5 MG TABLET PO SCH ×2 (11:39→17:19)
[2016-11-19] MEDS: VANCOMYCIN 500 MG in IV D5W 100 ML IV SCH (11:41)
--- NOTE | 2016-11-19 12:22 | NUR ---
TRANSFER BULBS FARMWORKER NOTE PT TRANSFER TO ROOM 105 TELE STATUS PER PROTOCOL. TRANSPORTED BY RN AT BEDSIDE. PT SHOWING NO S/O DISTRESS OR PAIN. PT'S DAUGHTER KIRT AT BEDSIDE DURING TRANSPORT. REPORT GIVEN TO SACHIN MORALES OVER THE PHONE. ALL PT'S BELONGINGS WERE PACKED BY KIRT AND TRANSPORTED WITH PT.
[2016-11-19] MEDS: HYDROCODONE/APAP 5/325MG 1 EACH TABLET PO PRN (12:37)
[2016-11-19] MEDS: ACETAMINOPHEN 325 MG TABLET PO PRN (14:25)
[2016-11-19] MEDS: INSULIN REGULAR, HUMAN 100 UNIT/ML 3 ML VIAL SQ PRN (17:33)
[2016-11-19] MEDS: MIRTAZAPINE 15 MG TABLET PO SCH (21:21)
[2016-11-19] MEDS: IV NS 0.9% 250 ML IV PRN (23:09)
[2016-11-20] VITALS: BP 140/76
[2016-11-20] MEDS: HYDROMORPHONE 1 MG/1 ML DISP.SYRIN IV PRN (01:52)
[2016-11-20 04:00] VITALS: BP 131/74
[2016-11-20 06:21] LABS: BASOPHILS % (AUTO) 0.1 % (0.0-2.0); EOSINOPHILS # (AUTO) 0.3 /CMM (0.0-0.7); EOSINOPHILS % (AUTO) 2.5 % (0.0-6.0); HEMATOCRIT 27 % (33-45); HEMOGLOBIN 9.1 g/dL (11.5-14.8); LYMPHOCYTES # (AUTO) 1.2 /CMM (0.8-4.8); LYMPHOCYTES % (AUTO) 10.7 % (20.0-44.0); MEAN CORPUSCULAR HEMOGLOBIN 31 PG (26.0-33.0); MEAN CORPUSCULAR HGB CONC 34 g/dl (31.0-36.0); MEAN CORPUSCULAR VOLUME 92 fL (82-100); MONOCYTES # (AUTO) 0.3 /CMM (0.1-1.30); MONOCYTES % (AUTO) 2.2 % (2.0-12.0); NEUTROPHILS # (AUTO) 9.7 /CMM (1.8-8.9); NEUTROPHILS % (AUTO) 84.5 % (43.0-81.0); PLATELET COUNT (AUTO) 160 /CMM (150-450); RDW COEFFICIENT OF VARIATION 17.5 (11.5-15.0); RED BLOOD CELL COUNT(AUTO) 2.96 MIL/uL (4.0-5.2); WHITE BLOOD COUNT (AUTO) 11.5 K/uL (4.3-11.0)
[2016-11-20] MEDS: BLOOD SUGAR DIAGNOSTIC 1 EACH STRIP IN SCH ×3 (06:43→17:14)
[2016-11-20 07:34] LABS: ALANINE AMINOTRANSFERASE 30 U/L (12-78); ALKALINE PHOSPHATASE 379 U/L (46-116); ASPARTATE AMINOTRANSFERASE 41 U/L (15-37); BILIRUBIN,TOTAL 1.9 mg/dL (0.2-1.0); CALCIUM, SERUM 7.1 mg/dL (8.5-10.1); CARBON DIOXIDE 24 mmol/L (21-32); CHLORIDE 105 mmol/L (98-107); CREATININE 0.7 mg/dL (0.6-1.3); GLUCOSE 101 mg/dL (74-106); MAGNESIUM 1.8 mg/dL (1.8-2.4); PHOSPHORUS 2.5 mg/dL (2.5-4.9); POTASSIUM 3.9 mmol/L (3.5-5.1); SODIUM SERUM 133 mmol/L (136-145); TOTAL PROTEIN, SERUM 5.3 g/dL (6.4-8.2); UREA NITROGEN, BLOOD 13 mg/dL (7-18)
--- NOTE | 2016-11-20 07:35 | NUR ---
INITIAL MS RN NOTE RCVD PT AWAKE AND ALERT, SHOWING NO S/O DISTRESS OR C/O PAIN AT THIS TIME. ON RA TOLERATING WELL. SR ON TELE. G-TUBE PLACEMENT VERIFIED BY AUSCULTATION/ASPIRATION. NO RESIDUAL OBTAINED. COTTO DRAINING J[place] COLORED URINE. CAREN PICC IN PLACE C/D/I/PATENT. NO S/O INFILTRATION/PHLEBITIS OBSERVED. IVF INFUSING TKO. WILL CONTINUE TO MONITOR PT FOR SAFETY AND COMFORT. CALL LIGHT WITHIN REACH. BED IN LOW AND LOCKED POSITION.
[2016-11-20 07:40] LABS: ALBUMIN 1.1 g/dL (3.4-5.0)
[2016-11-20 08:00] VITALS: BP 121/67
[2016-11-20] MEDS: DOCUSATE SODIUM LIQ 100 MG/10 ML UDC GT SCH ×2 (08:30→17:00)
[2016-11-20] MEDS: GLYTROL 1,000 ML BAG GT PRN (08:30)
[2016-11-20] MEDS: MEROPENEM 1 G in IV NS 0.9% 100 ML IV SCH ×2 (08:30→22:14)
[2016-11-20] MEDS: MULTIVITAMINS,THERAGRAN 1 UDTAB TABLET GT SCH (08:31)
[2016-11-20] MEDS: THIAMINE HCL 100 MG TABLET PO SCH (08:31)
[2016-11-20] MEDS: APIXABAN 5 MG TABLET PO SCH ×2 (08:31→17:14)
[2016-11-20] MEDS: METOCLOPRAMIDE HCL 10 MG/2 ML VIAL IV SCH ×2 (08:31→12:02)
[2016-11-20] MEDS: LACTULOSE 10 G/15 ML UDC (PYXIS) PO SCH ×2 (08:31→22:14)
[2016-11-20] MEDS: AMIODARONE HCL 200 MG TABLET PO SCH ×3 (08:31→17:14)
[2016-11-20] MEDS: PANTOPRAZOLE 40 MG/PACK PACK GT SCH (08:31)
[2016-11-20] MEDS: ASCORBIC ACID 500 MG TABLET PO SCH (08:31)
[2016-11-20] MEDS: ZINC SULFATE 220 MG CAPSULE PO SCH (08:31)
[2016-11-20] MEDS: Z GUARD REMEDY 2 OZ OINT TP SCH (08:32)
[2016-11-20] MEDS: HYDROGEL DRESSING 90 GM TUBE TP SCH (08:32)
[2016-11-20] MEDS: ALBUTEROL FS 2.5 MG/3 ML VIAL.NEB NEB PRN (11:03)
[2016-11-20] MEDS: IPRATROPIUM NEB FS 0.5 MG/2.5 ML AMPUL.NEB NEB PRN (11:03)
--- NOTE | 2016-11-20 11:21 | NUR ---
KILN OPERATOR HELPER NOTE PICC LINE DRESSING PULLED OUT, BLOOD RETURN OBSERVED FROM ONE OF THE PORTS. PICC LINE RN IN UNIT ASSESSED LINE DETERMINED THAT CATHETER HAS BEEN PULLED OUT A BIT. LINE STILL USABLE. WILL CONTINUE TO MONITOR.
[2016-11-20] MEDS: VANCOMYCIN 500 MG in IV D5W 100 ML IV SCH (12:02)
[2016-11-20 16:00] VITALS: BP 116/50
--- NOTE | 2016-11-20 16:34 | NUR ---
MS RN NOTE DR. WISEMAN AT PT'S BEDSIDE INFORMED OF PT'S ALBUMIN 1.1 THIS AM. NOTHING TO DO AT THIS TIME. FAMILY REQUESTED PT TO START PO INTAKE. MD NOT RECOMMENDING PO INTAKE AT THIS TIME. PT TO GO TO [facility] PER MD.
[2016-11-20 16:41] VITALS: BP 116/58
[2016-11-20] MEDS: INSULIN REGULAR, HUMAN 100 UNIT/ML 3 ML VIAL SQ PRN (17:24)
[2016-11-20] MEDS: ONDANSETRON HCL/PF 4 MG/2 ML VIAL IV PRN (17:36)
--- NOTE | 2016-11-20 19:03 | NUR ---
ENDING MS RN NOTE PT REMAINS STABLE, AFEBRILE, SHOWING NO S/O DISTRESS OR PAIN. TOLERATING ORDERED TUBE FEEDING. NO RESIDUAL. COTTO DRAINING J[place] COLORED URINE. IV ACCESS C/D/I/PATENT. NO S/O INFILTRATION/PHLEBITIS OBSERVED. IVF INFUSING TKO. PT'S CARE WILL BE ENDORSED TO PRESCHOOL ASSOCIATE TEACHER RN FOR CONTINUITY OF CARE.
[2016-11-20 20:00] VITALS: BP 106/55
--- NOTE | 2016-11-20 20:00 | NUR ---
MS RN NOTE PT IN BED AWAKE. A/O X 2, NO SOB, NO DISTRESS OR DISCOMFORT NOTED. DENIES PAIN. GTF GLYTROL @ 65 ML/HR INFUSING WELL, 5 ML RESIDUAL NOTED. F/C INTACT AND PATENT DRAINING YELLOWISH COLOR URINE. CAREN MID LINE INTACT AND PATENT. ALL NEEDS ATTENDED. SIDE RAILS UP X 2 AND CALL LIGHT WITHIN REACH. VSS. CONTINUE TO MONITOR HER. .
[2016-11-20] MEDS: MIRTAZAPINE 15 MG TABLET PO SCH (22:14)
[2016-11-21] MEDS: BLOOD SUGAR DIAGNOSTIC 1 EACH STRIP IN SCH ×4 (00:23→17:21)
[2016-11-21] MEDS: INSULIN REGULAR, HUMAN 100 UNIT/ML 3 ML VIAL SQ PRN ×3 (00:25→17:20)
--- NOTE | 2016-11-21 03:40 | NUR ---
MS RN NOTE PT IS AWAKE AND C/O LEFT FLANK AREA PAIN 6/10, NORCO 1 TAB VIA GT GIVEN. CONTINUE TO MONITOR HER.
[2016-11-21] MEDS: HYDROCODONE/APAP 5/325MG 1 EACH TABLET PO PRN ×2 (03:43→19:50)
[2016-11-21 04:00] VITALS: BP 131/72
[2016-11-21] MEDS: GLYTROL 1,000 ML BAG GT PRN ×2 (05:46→17:25)
--- NOTE | 2016-11-21 06:47 | NUR ---
MS RN NOTE PT IN BED ASLEEP, AROUSABLE. NO DISTRESS OR DISCOMFORT NOTED. DENIES PAIN. GTF INFUSING WELL, 0 ML RESIDUAL NOTED. F/C INTACT AND PATENT. DRAINING YELLOWISH COLOR URINE. SIDE RAILS UP X 2 AND CALL LIGHT WITHIN REACH. WILL ENDORSE TO DAY SHIFT NURSE FOR CONTINUE TO CARE.
[2016-11-21 06:52] LABS: CALCIUM, SERUM 7.1 mg/dL (8.5-10.1); CARBON DIOXIDE 24 mmol/L (21-32); CHLORIDE 107 mmol/L (98-107); CREATININE 0.7 mg/dL (0.6-1.3); GLUCOSE 99 mg/dL (74-106); POTASSIUM 4.5 mmol/L (3.5-5.1); SODIUM SERUM 138 mmol/L (136-145); UREA NITROGEN, BLOOD 13 mg/dL (7-18)
[2016-11-21 07:09] LABS: BASOPHILS % (AUTO) 0.2 % (0.0-2.0); EOSINOPHILS # (AUTO) 0.3 /CMM (0.0-0.7); HEMATOCRIT 25 % (33-45); HEMOGLOBIN 8.6 g/dL (11.5-14.8); LYMPHOCYTES # (AUTO) 1.3 /CMM (0.8-4.8); LYMPHOCYTES % (AUTO) 9.9 % (20.0-44.0); MEAN CORPUSCULAR HEMOGLOBIN 31 PG (26.0-33.0); MEAN CORPUSCULAR HGB CONC 34 g/dl (31.0-36.0); MEAN CORPUSCULAR VOLUME 90 fL (82-100); MONOCYTES # (AUTO) 0.4 /CMM (0.1-1.30); MONOCYTES % (AUTO) 3.4 % (2.0-12.0); NEUTROPHILS # (AUTO) 10.9 /CMM (1.8-8.9); NEUTROPHILS % (AUTO) 84.5 % (43.0-81.0); PLATELET COUNT (AUTO) 192 /CMM (150-450); RDW COEFFICIENT OF VARIATION 17.1 (11.5-15.0); RED BLOOD CELL COUNT(AUTO) 2.81 MIL/uL (4.0-5.2); WHITE BLOOD COUNT (AUTO) 12.9 K/uL (4.3-11.0)
[2016-11-21 08:00] VITALS: BP 152/81
[2016-11-21] MEDS: DOCUSATE SODIUM LIQ 100 MG/10 ML UDC GT SCH ×2 (08:34→17:00)
[2016-11-21] MEDS: MEROPENEM 1 G in IV NS 0.9% 100 ML IV SCH ×2 (08:34→21:25)
[2016-11-21] MEDS: MULTIVITAMINS,THERAGRAN 1 UDTAB TABLET GT SCH (08:34)
[2016-11-21] MEDS: PANTOPRAZOLE 40 MG/PACK PACK GT SCH (08:34)
[2016-11-21] MEDS: LACTULOSE 10 G/15 ML UDC (PYXIS) PO SCH ×2 (08:35→20:57)
[2016-11-21] MEDS: AMIODARONE HCL 200 MG TABLET PO SCH ×3 (08:35→17:21)
[2016-11-21] MEDS: APIXABAN 5 MG TABLET PO SCH ×2 (08:35→17:21)
[2016-11-21] MEDS: ZINC SULFATE 220 MG CAPSULE PO SCH (08:36)
[2016-11-21] MEDS: FOLIC ACID 1 MG TABLET PO SCH (08:36)
[2016-11-21] MEDS: THIAMINE HCL 100 MG TABLET PO SCH (08:36)
[2016-11-21] MEDS: ASCORBIC ACID 500 MG TABLET PO SCH (08:36)
[2016-11-21] MEDS: Z GUARD REMEDY 2 OZ OINT TP SCH (08:37)
[2016-11-21] MEDS: HYDROGEL DRESSING 90 GM TUBE TP SCH (08:37)
[2016-11-21] MEDS: VANCOMYCIN 500 MG in IV D5W 100 ML IV SCH (11:19)
[2016-11-21] MEDS: ALBUTEROL FS 2.5 MG/3 ML VIAL.NEB NEB PRN (11:24)
[2016-11-21] MEDS: IPRATROPIUM NEB FS 0.5 MG/2.5 ML AMPUL.NEB NEB PRN (11:24)
[2016-11-21 16:00] VITALS: BP 149/68
[2016-11-21 20:00] VITALS: BP 122/64
[2016-11-21] MEDS: METOPROLOL TARTRATE 25 MG TABLET PO SCH (21:26)
[2016-11-21] MEDS: MIRTAZAPINE 15 MG TABLET PO SCH (21:26)
[2016-11-22] MEDS: BLOOD SUGAR DIAGNOSTIC 1 EACH STRIP IN SCH ×5 (00:54→23:39)
[2016-11-22] MEDS: ACETAMINOPHEN 325 MG TABLET PO PRN (01:48)
[2016-11-22 04:00] VITALS: BP 129/69
[2016-11-22 06:31] LABS: BASOPHILS % (AUTO) 0.1 % (0.0-2.0); EOSINOPHILS # (AUTO) 0.2 /CMM (0.0-0.7); EOSINOPHILS % (AUTO) 1.5 % (0.0-6.0); HEMATOCRIT 27 % (33-45); HEMOGLOBIN 9.6 g/dL (11.5-14.8); LYMPHOCYTES # (AUTO) 1.3 /CMM (0.8-4.8); LYMPHOCYTES % (AUTO) 10.1 % (20.0-44.0); MEAN CORPUSCULAR HEMOGLOBIN 33 PG (26.0-33.0); MEAN CORPUSCULAR HGB CONC 35 g/dl (31.0-36.0); MEAN CORPUSCULAR VOLUME 95 fL (82-100); MONOCYTES # (AUTO) 0.7 /CMM (0.1-1.30); MONOCYTES % (AUTO) 5.5 % (2.0-12.0); NEUTROPHILS # (AUTO) 10.6 /CMM (1.8-8.9); NEUTROPHILS % (AUTO) 82.8 % (43.0-81.0); PLATELET COUNT (AUTO) 225 /CMM (150-450); RDW COEFFICIENT OF VARIATION 18.5 (11.5-15.0); RED BLOOD CELL COUNT(AUTO) 2.88 MIL/uL (4.0-5.2); WHITE BLOOD COUNT (AUTO) 12.8 K/uL (4.3-11.0)
--- NOTE | 2016-11-22 06:45 | NUR ---
MS RN NOTE NURSE BRIELLE FOUND THE PT SITTING ON SIDE OF THE FLOOR. PT STATES "SHE SLIDE DOWN FROM THE BED AND NOTHING HAPPEN". DENIES PAIN. SKIN CHECKED NO NEW INJURY NOTED. PT ABLE TO MOVE ALL EXT'S WITHOUT ANY DISCOMFORT. FAMILY INFORMED. REPOSITION THE PT IN BED. WILL ENDORSE TO DAY SHIFT TO CONTINUE TO CARE.. Addendum: 11/22/16 at 0740 by RAJWINDER HYLTON RN PT SITTING ON FLOOR NEXT TO THE BED. ALSO INFORMED NURSING SHOP SUPERVISOR, CHARGE NURSE. AND INFORMED DR WISEMAN.
[2016-11-22 06:52] LABS: CALCIUM, SERUM 7.3 mg/dL (8.5-10.1); CARBON DIOXIDE 26 mmol/L (21-32); CHLORIDE 104 mmol/L (98-107); CREATININE 0.7 mg/dL (0.6-1.3); GLUCOSE 116 mg/dL (74-106); MAGNESIUM 1.9 mg/dL (1.8-2.4); PHOSPHORUS 2.2 mg/dL (2.5-4.9); POTASSIUM 4.8 mmol/L (3.5-5.1); SODIUM SERUM 136 mmol/L (136-145); UREA NITROGEN, BLOOD 14 mg/dL (7-18)
--- NOTE | 2016-11-22 07:38 | NUR ---
MS RN NOTE DR WISEMAN INFORMED NO NEW ORDER AT THIS TIME.
[2016-11-22 08:00] VITALS: BP 126/66
[2016-11-22] MEDS: Z GUARD REMEDY 2 OZ OINT TP SCH (09:00)
[2016-11-22] MEDS: HYDROGEL DRESSING 90 GM TUBE TP SCH (09:00)
[2016-11-22] MEDS: PANTOPRAZOLE 40 MG/PACK PACK GT SCH (09:24)
[2016-11-22] MEDS: MULTIVITAMINS,THERAGRAN 1 UDTAB TABLET GT SCH (09:24)
[2016-11-22] MEDS: AMIODARONE HCL 200 MG TABLET PO SCH ×3 (09:25→16:44)
[2016-11-22] MEDS: THIAMINE HCL 100 MG TABLET PO SCH (09:26)
[2016-11-22] MEDS: DOCUSATE SODIUM LIQ 100 MG/10 ML UDC GT SCH ×2 (09:26→16:43)
[2016-11-22] MEDS: METOPROLOL TARTRATE 25 MG TABLET PO SCH ×2 (09:26→21:11)
[2016-11-22] MEDS: FOLIC ACID 1 MG TABLET PO SCH (09:26)
[2016-11-22] MEDS: ZINC SULFATE 220 MG CAPSULE PO SCH (09:26)
[2016-11-22] MEDS: APIXABAN 5 MG TABLET PO SCH ×2 (09:29→16:45)
[2016-11-22] MEDS: ASCORBIC ACID 500 MG TABLET PO SCH (09:30)
[2016-11-22] MEDS: LACTULOSE 10 G/15 ML UDC (PYXIS) PO SCH (09:30)
[2016-11-22] MEDS: MEROPENEM 1 G in IV NS 0.9% 100 ML IV SCH ×2 (09:30→21:10)
[2016-11-22] MEDS: VANCOMYCIN 500 MG in IV D5W 100 ML IV SCH (12:03)
[2016-11-22 16:00] VITALS: BP_SYST 106; BP_SYST 127; BP_DIAS 41; BP_DIAS 68
--- NOTE | 2016-11-22 19:30 | NUR ---
MS RN INITIAL NOTE PT RECEIVED IN BED WITH FAMILY AT BEDSIDE. A/O X3 AND ABLE TO MAKE NEEDS KNOWN. ON ROOM AIR AND SATURATING WELL. IV CAREN MIDLINE CLEAN, INTACT AND PATENT.GTUBE FEEDING ON AND NOTED WITHOUT RESIDUALS. GTUBE SITE CLEAN AND NO S/SX OF INFECTION NOTED. COTTO CATHETER IN PLACE AND DRAINING PINK/RED URINE WITH SEDIMENT. AM NURSE ENDORSED THAT DR WISEMAN IS AWARE OF THE HEMATURIA WITH NO NEW ORDERS. ORAL CARE PERFORMED ON PT. CALL LIGHT WITHIN REACH. BED IN LOWEST POSITION AND BED ALARM ON. WILL CONTINUE TO MONITOR.
[2016-11-22 20:00] VITALS: BP 151/64
--- NOTE | 2016-11-22 20:29 | NUR ---
MS RN NOTES RECEIVED CALL FROM [facility] FROM AMBULANCE, PATIENT ON WILL CALL TRIP # [id number], PER INSTRUCTION PROVIDE TRIP NUMBER TO ACTIVATE ORDER. PRIMARY NURSE INFORMED.
[2016-11-22] MEDS: MIRTAZAPINE 15 MG TABLET PO SCH (21:10)
[2016-11-22] MEDS: IV NS 0.9% 250 ML IV PRN (21:11)
[2016-11-22] MEDS: INSULIN REGULAR, HUMAN 100 UNIT/ML 3 ML VIAL SQ PRN (23:44)
[2016-11-23 04:00] VITALS: BP 132/71
[2016-11-23] MEDS: GLYTROL 1,000 ML BAG GT PRN (05:13)
[2016-11-23] MEDS: BLOOD SUGAR DIAGNOSTIC 1 EACH STRIP IN SCH ×3 (05:35→18:09)
[2016-11-23 05:52] LABS: BASOPHILS # (AUTO) 0.1 /CMM (0.0-0.2); BASOPHILS % (AUTO) 0.4 % (0.0-2.0); EOSINOPHILS # (AUTO) 0.2 /CMM (0.0-0.7); EOSINOPHILS % (AUTO) 1.7 % (0.0-6.0); HEMATOCRIT 24 % (33-45); HEMOGLOBIN 8.1 g/dL (11.5-14.8); LYMPHOCYTES # (AUTO) 1.3 /CMM (0.8-4.8); LYMPHOCYTES % (AUTO) 9.5 % (20.0-44.0); MEAN CORPUSCULAR HEMOGLOBIN 33 PG (26.0-33.0); MEAN CORPUSCULAR HGB CONC 34 g/dl (31.0-36.0); MEAN CORPUSCULAR VOLUME 97 fL (82-100); MONOCYTES # (AUTO) 0.6 /CMM (0.1-1.30); NEUTROPHILS # (AUTO) 11.7 /CMM (1.8-8.9); NEUTROPHILS % (AUTO) 84.4 % (43.0-81.0); PLATELET COUNT (AUTO) 245 /CMM (150-450); RDW COEFFICIENT OF VARIATION 18.2 (11.5-15.0); RED BLOOD CELL COUNT(AUTO) 2.43 MIL/uL (4.0-5.2); WHITE BLOOD COUNT (AUTO) 13.9 K/uL (4.3-11.0)
[2016-11-23 06:07] LABS: ALANINE AMINOTRANSFERASE 27 U/L (12-78); ALKALINE PHOSPHATASE 373 U/L (46-116); ASPARTATE AMINOTRANSFERASE 28 U/L (15-37); BILIRUBIN,TOTAL 0.8 mg/dL (0.2-1.0); CARBON DIOXIDE 26 mmol/L (21-32); CHLORIDE 105 mmol/L (98-107); CREATININE 0.6 mg/dL (0.6-1.3); GLUCOSE 104 mg/dL (74-106); POTASSIUM 5.2 mmol/L (3.5-5.1); SODIUM SERUM 135 mmol/L (136-145); TOTAL PROTEIN, SERUM 5.5 g/dL (6.4-8.2); UREA NITROGEN, BLOOD 15 mg/dL (7-18)
--- NOTE | 2016-11-23 06:47 | NUR ---
MS RN CLOSING NOTE PT REMAINED STABLE DURING SHIFT. NO ACUTE DISTRESS NOTED. DAUGHTER AT BEDSIDE. GTUBE FEEDING WELL TOLERATED. ALL SAFETY PRECAUTIONS IN PLACE. KEPT CLEAN AND DRY AT ALL TIMES. REPOSITIONED Q2H. CALL LIGHT WITHIN REACH. RECEIVED CRITICAL LAB VALUE FROM [facility] FOR ALBUMIN 1.0. LEFT MESSAGE WITH DR. WISEMAN. WILL ENDORSE TO NEXT SHIFT FOR CONTINUITY OF CARE.
--- NOTE | 2016-11-23 07:30 | NUR ---
RN NOTES RECEIVED PATIENT IN BED ALERT, AWAKE, ORIENTED X3 WITH BREATHING NORMAL, EVEN AND UNLABORED. NO SOB NOTED. ON ROOM AIR. SATURATING WELL. NO ACUTE DISTRESS NOTED. ON GT FEED @65CC/HR. TOLERATED WELL. ASPIRATION PRECAUTION TAKEN. HOB ELEVATED. POSITIVE PLACEMENT. F/C IS PATENT AND INTACT, DRAINING WITH GRAVITY. KEPT CLEAN, DRY AND COMFORTABLE. ALL NEEDS ATTENDED. SAFETY MEASURE OBSERVED. CALL LIGHT WITH IN REACH. WILL CONT TO MONITOR.
[2016-11-23 08:00] VITALS: BP 142/72
[2016-11-23] MEDS: DOCUSATE SODIUM LIQ 100 MG/10 ML UDC GT SCH ×2 (08:35→18:01)
[2016-11-23] MEDS: ZINC SULFATE 220 MG CAPSULE PO SCH (08:35)
[2016-11-23] MEDS: THIAMINE HCL 100 MG TABLET PO SCH (08:35)
[2016-11-23] MEDS: FOLIC ACID 1 MG TABLET PO SCH (08:35)
[2016-11-23] MEDS: ASCORBIC ACID 500 MG TABLET PO SCH (08:35)
[2016-11-23] MEDS: MULTIVITAMINS,THERAGRAN 1 UDTAB TABLET GT SCH (08:35)
[2016-11-23] MEDS: PANTOPRAZOLE 40 MG/PACK PACK GT SCH (08:35)
[2016-11-23] MEDS: AMIODARONE HCL 200 MG TABLET PO SCH ×2 (08:36→18:02)
[2016-11-23] MEDS: METOPROLOL TARTRATE 25 MG TABLET PO SCH (08:37)
[2016-11-23] MEDS: MEROPENEM 1 G in IV NS 0.9% 100 ML IV SCH (08:37)
[2016-11-23] MEDS: Z GUARD REMEDY 2 OZ OINT TP SCH (08:37)
[2016-11-23] MEDS: HYDROGEL DRESSING 90 GM TUBE TP SCH (08:39)
[2016-11-23] MEDS: APIXABAN 5 MG TABLET PO SCH ×2 (08:44→18:35)
[2016-11-23] MEDS ORDERED: LACTULOSE 10 G/15 ML UDC (PYXIS) PO SCH (09:00)
[2016-11-23] MEDS: VANCOMYCIN 500 MG in IV D5W 100 ML IV SCH (12:42)
[2016-11-23] MEDS: INSULIN REGULAR, HUMAN 100 UNIT/ML 3 ML VIAL SQ PRN (12:44)
[2016-11-23 16:00] VITALS: BP 107/58
[2016-11-23] MEDS ORDERED: FERROUS SULFATE (325 MG) 325 MG/TAB TABLET PO SCH (17:00)
[2016-11-23 18:02] VITALS: BP 107/58
--- NOTE | 2016-11-23 19:00 | NUR ---
RN NOTES PATIENT DISCHARGED IN STABLE CONDITION WITH BREATHING NORMAL, EVEN AND UNLABORED. NO SOB NOTED. NO ACUTE DISTRESS NOTED. DISCHARGE INSTRUCTION GIVEN, FAMILY AT BEDSIDE. UNDERSTOOD WELL. REPORT CALLED BY CHARGE NURSE TO SNF. PATIENT LEFT VIA AMBULANCE IN STABLE CONDITION.
--- NOTE | 2016-11-23 19:40 | NUR ---
RN NOTES PATIENT ENDORSED TO NEXT SHIFT IN STABLE CONDITION FOR CONTINUITY OF CARE. Addendum: 11/23/16 at 1946 by MELVINA RODRIGUEZ RN DISREGARDED WRONG PATIENT DOCUMENTATION.
== END 2016-11-23 19:46 | DRG 871 ==
LOC: ER 20:59 → TELE 22:21 → ICU 23:15 → TELE1 11-19 12:10 → MEDSG1 11-20 10:33
PROVIDERS: ADMIT Internal Medicine; ATTEND Internal Medicine
PROC: 30233N1 Transfusion of Nonautologous Red Blood Cells into Peripheral Vein, Percutaneous Approach (ICD-10-PCS; 2016-11-10)
PROC: 05H533Z Insertion of Infusion Device into Right Subclavian Vein, Percutaneous Approach (ICD-10-PCS; 2016-11-11)
PROC: B546ZZA Ultrasonography of Right Subclavian Vein, Guidance (ICD-10-PCS; 2016-11-11)
PROC: 0DH63UZ Insertion of Feeding Device into Stomach, Percutaneous Approach (ICD-10-PCS; principal; 2016-11-14 07:30)
DX: A41.9 Sepsis, unspecified organism (principal); E43 Unspecified severe protein-calorie malnutrition; J69.0 Pneumonitis due to inhalation of food and vomit; J96.91 Respiratory failure, unspecified with hypoxia; I26.99 Other pulmonary embolism without acute cor pulmonale; R65.21 Severe sepsis with septic shock; N17.9 Acute kidney failure, unspecified; L89.152 Pressure ulcer of sacral region, stage 2; E11.22 Type 2 diabetes mellitus with diabetic chronic kidney disease; I48.92 Unspecified atrial flutter; I47.1 Supraventricular tachycardia; I48.0 Paroxysmal atrial fibrillation; J90 Pleural effusion, not elsewhere classified; E87.1 Hypo-osmolality and hyponatremia; N39.0 Urinary tract infection, site not specified; F33.2 Major depressive disorder, recurrent severe without psychotic features; M84.48XA Pathological fracture, other site, initial encounter for fracture; E11.649 Type 2 diabetes mellitus with hypoglycemia without coma; E11.65 Type 2 diabetes mellitus with hyperglycemia; E86.0 Dehydration; R65.20 Severe sepsis without septic shock; D50.9 Iron deficiency anemia, unspecified; D63.8 Anemia in other chronic diseases classified elsewhere; E78.5 Hyperlipidemia, unspecified; E83.42 Hypomagnesemia; E87.6 Hypokalemia; I70.0 Atherosclerosis of aorta; I25.10 Atherosclerotic heart disease of native coronary artery without angina pectoris; Z97.5 Presence of (intrauterine) contraceptive device; Z87.440 Personal history of urinary (tract) infections; Z86.711 Personal history of pulmonary embolism; Z83.3 Family history of diabetes mellitus; Z79.899 Other long term (current) drug therapy; Z79.4 Long term (current) use of insulin; Z79.01 Long term (current) use of anticoagulants; N18.9 Chronic kidney disease, unspecified; F41.1 Generalized anxiety disorder; D53.9 Nutritional anemia, unspecified; R13.10 Dysphagia, unspecified; N32.89 Other specified disorders of bladder; M85.80 Other specified disorders of bone density and structure, unspecified site; I12.9 Hypertensive chronic kidney disease with stage 1 through stage 4 chronic kidney disease, or unspecified chronic kidney disease; K59.00 Constipation, unspecified; K57.30 Diverticulosis of large intestine without perforation or abscess without bleeding; K76.0 Fatty (change of) liver, not elsewhere classified; K80.20 Calculus of gallbladder without cholecystitis without obstruction; M47.816 Spondylosis without myelopathy or radiculopathy, lumbar region; M48.00 Spinal stenosis, site unspecified; M77.9 Enthesopathy, unspecified; R31.0 Gross hematuria
CPT/HCPCS: 36415; 36569; 36600; 71010-TC; 71250-TC; 71260-TC; 74000-TC; 76705-TC; 76856-TC; 76942-TC; 80048-TC; 80053-TC; 80076-TC; 80202-TC; 81000-TC; 82140-TC; 82272-TC; 82378; 82728-TC; 82746; 82803-TC; 82962-TC; 82977-TC; 83540-TC; 83605-TC; 83615-TC; 83735-TC; 83880; 84100-TC; 84134-TC; 84155; 84165; 84443-TC; 84484-TC; 85025-TC; 85045-TC; 85396; 85730-TC; 86301; 86304; 86850-TC; 86921-TC; 87040-TC; 87070-TC; 87075-TC; 87081-TC; 87086-TC; 87102-TC; 88305-TC; 88312-TC; 89051-TC; 92521; 92526; 93307-TC; 93971-TC; A4216; A4606; A6248; A6402; C1751; C9113; J0282; J0690; J1160; J1170; J1644; J1815; J1940; J2185; J2270; J2405; J2543; J2704; J2765; J3370; J3475; J3480; J3490; J7030; J7040; J7042; J7050; J7060; P9016-BL; Q9967; Z7610

== ENCOUNTER 2018-06-09 17:42 | Emergency (ER) | payer MEDICARE, MEDICAID ==
[~2018-06-09] VITALS: Ht 160 cm; Wt 71.2 kg
[2018-06-09 19:11] VITALS: BP 132/72
== END 2018-06-09 19:14 | disposition home or self-care (01) ==
LOC: ER 17:44
DX: T83.038A Leakage of other urinary catheter, initial encounter (principal); I10 Essential (primary) hypertension; J45.909 Unspecified asthma, uncomplicated; F41.9 Anxiety disorder, unspecified; F32.9 Major depressive disorder, single episode, unspecified; Y84.8 Other medical procedures as the cause of abnormal reaction of the patient, or of later complication, without mention of misadventure at the time of the procedure; Z98.890 Other specified postprocedural states; Y92.89 Other specified places as the place of occurrence of the external cause
CPT/HCPCS: 51702; 99284; A4606

== ENCOUNTER 2018-08-05 22:33 | Emergency (ER) | payer MEDICARE, MEDICAID ==
[~2018-08-05] VITALS: Ht 157.5 cm; Wt 69.4 kg
[2018-08-05 23:09] VITALS: BP 158/72
== END 2018-08-06 00:36 | disposition home or self-care (01) ==
LOC: ER 22:35
DX: T83.031A Leakage of indwelling urethral catheter, initial encounter (principal); R32 Unspecified urinary incontinence; I10 Essential (primary) hypertension; J45.909 Unspecified asthma, uncomplicated; F41.9 Anxiety disorder, unspecified; F32.9 Major depressive disorder, single episode, unspecified; M19.90 Unspecified osteoarthritis, unspecified site; Z98.890 Other specified postprocedural states

== ENCOUNTER 2018-08-31 08:44 | Emergency (ER) | payer MEDICARE, MEDICAID ==
[~2018-08-31] VITALS: Ht 157.5 cm; Wt 70.8 kg
--- NOTE | 2018-08-31 09:05 | NUR ---
PT ARRIVED TO ED WITH C/O 8/10 CRAMPING PAIN IN LOWER ABDOMEN AFTER CURRENT CATHETER BECAME DISLODGED LESS THAN ONE HOUR AGO. CATHETER BALLOON IS FULLY INFLATED, IN PT DIAPER. BLADDER IS DISTENDED AND HARD TO THE TOUCH. PT HAS NO OTHER MEDICAL COMPLAINTS OR CONCERNS. PT IS AAOX4. BREATHS EVEN AND UNLABORED. VS WNL. SAFETY PRECAUTIONS IN PLACE. WILL CONTINUE TO MONITOR. PENDING EVAL AND ORDERS.
--- NOTE | 2018-08-31 09:45 | NUR ---
NEW 16F COTTO CATH PLACED. 500ML CLEAR, YELLOW URINE DRAINED. LEG BAG PLACED. PT STATES PAIN IS NOW GONE. AAOX4. BREATHS EVEN AND UNLABORED. PENDING DISCHARGE.
--- NOTE | 2018-08-31 09:55 | NUR ---
PT VERBALIZED UNDERSTANDING OF DISCHARGE AND AFTERCARE INSTRUCTIONS. AAOX4. BREATHS EVEN AND UNLABORED. NO S/S DISTRESS. ARM BAND REMOVED. ALL QUESTIONS ANSWERED. BELONGINGS WITH PT. PTS CAREGIVER WITH PT FOR SAFE TRANSPORT HOME.
[2018-08-31 10:01] VITALS: BP 135/70
== END 2018-08-31 10:11 | disposition home or self-care (01) ==
LOC: ER 08:45
DX: T83.021A Displacement of indwelling urethral catheter, initial encounter (principal); I10 Essential (primary) hypertension; J45.909 Unspecified asthma, uncomplicated; F41.9 Anxiety disorder, unspecified; F32.9 Major depressive disorder, single episode, unspecified; Z98.890 Other specified postprocedural states

== ENCOUNTER 2018-09-01 21:48 | Emergency (ER) | payer MEDICARE, MEDICAID ==
[~2018-09-01] VITALS: Ht 157.5 cm; Wt 68.0 kg
[2018-09-01 21:53] VITALS: BP 135/87
--- NOTE | 2018-09-01 23:04 | NUR ---
Patient discharged to home in stable condition. Written and verbal after care instructions given. Patient verbalizes understanding of instruction.
== END 2018-09-01 23:05 | disposition home or self-care (01) ==
LOC: ER 21:52
DX: T83.021A Displacement of indwelling urethral catheter, initial encounter (principal); I10 Essential (primary) hypertension; J45.909 Unspecified asthma, uncomplicated; F41.9 Anxiety disorder, unspecified; M19.90 Unspecified osteoarthritis, unspecified site; F32.9 Major depressive disorder, single episode, unspecified; Z98.890 Other specified postprocedural states

== ENCOUNTER 2020-03-04 08:02 | Inpatient (IN) | payer MEDICARE, OTHER ==
[~2020-03-04] VITALS: Ht 157.5 cm; Wt 49.9 kg
--- NOTE | 2020-03-04 08:15 | NUR ---
BIB DAUGHTER FROM HOME,SENT HERE BY PDM DUE TO HEMOGLOBIN 6.8 DRAWN ON 02/26/20. PATIENT A/OX4, BREATHING EVEN AND UNLABORED, NO SOB NOTED. NEEDS ATTENDED. ATTACHED TO THE AGRONOMY TEACHER.
--- NOTE | 2020-03-04 08:45 | NUR ---
IV LINE ESTABLISHED, BLOOD DRAWN AND SENT TO LAB. COVID SWAB DONE AND SENT.
--- NOTE | 2020-03-04 08:53 | NUR ---
IVONE ON THE PHONE, MD TO MD IN PROGRESS.
[2020-03-04 09:01] LABS: BASOPHILS # (AUTO) 0.1 /CMM (0.0-0.2); BASOPHILS % (AUTO) 0.9 % (0.0-2.0); EOSINOPHILS % (AUTO) 0.7 % (0.0-6.0); HEMATOCRIT 21 % (33-45); LYMPHOCYTES # (AUTO) 4.9 /CMM (0.8-4.8); LYMPHOCYTES % (AUTO) 33.9 % (20.0-44.0); MEAN CORPUSCULAR HGB CONC 31 g/dl (31.0-36.0); MEAN CORPUSCULAR VOLUME 78 fL (82-100); MONOCYTES # (AUTO) 0.4 /CMM (0.1-1.30); NEUTROPHILS # (AUTO) 8.8 /CMM (1.8-8.9); NEUTROPHILS % (AUTO) 61.5 % (43.0-81.0); PLATELET COUNT (AUTO) 549 /CMM (150-450); RED BLOOD CELL COUNT(AUTO) 2.69 MIL/uL (4.0-5.2); WHITE BLOOD COUNT (AUTO) 14.4 K/uL (4.3-11.0)
[2020-03-04] MEDS ORDERED: METO25TA20 PO (09:01)
[2020-03-04] MEDS ORDERED: MEGE400O5 PO (09:01)
[2020-03-04] MEDS ORDERED: ALBU18HF2 INH (09:01)
[2020-03-04 09:09] LABS: HEMOGLOBIN 6.6 g/dL (11.5-14.8)
[2020-03-04 09:45] LABS: BILIRUBIN,URINE LARGE (NEGATIVE); BLOOD, URINE TRACE-INTA Ery/uL (NEGATIVE); COLOR,URINE DARK YELLOW (YELLOW); LEUKOCYTE ESTERASE ,URINE LARGE (NEGATIVE); NITRITE, URINE POSITIVE (NEGATIVE); PH,URINE 5.5 (5.0-8.0); PROTEIN,URINE 100 mg/dl (NEGATIVE); UGLUCOSE NEGATIVE (NEGATIVE)
[2020-03-04 09:46] LABS: BILIRUBIN,TOTAL 6.9 mg/dL (0.2-1.0); CALCIUM, SERUM 8.5 mg/dL (8.5-10.1)
[2020-03-04 09:49] LABS: POTASSIUM 2.8 mmol/L (3.5-5.1)
[2020-03-04 10:30] LABS: RBC,URINE 0-2 /HPF (0-2); WBC,URINE 81-100 /HPF (0-3)
[2020-03-04] MEDS ORDERED: ONDANSETRON HCL/PF 4 MG/2 ML VIAL IV PRN (10:30)
[2020-03-04] MEDS ORDERED: ACETAMINOPHEN 325 MG TABLET PO PRN (10:30)
[2020-03-04] MEDS: PANTOPRAZOLE 40 MG TABLET.DR PO SCH (10:30)
[2020-03-04] MEDS: ENOXAPARIN SODIUM 40 MG/0.4 ML DISP.SYRIN SQ SCH (10:30)
[2020-03-04] MEDS ORDERED: CEFTRIAXONE 1 G in IV D5W 50 ML IV ONE (10:30)
[2020-03-04 10:31] LABS: BACTERIA,URINE Many /HPF (None Seen); SQUAMOUS EPITHELIAL CELL,UR Moderate /HPF (None Seen)
--- NOTE | 2020-03-04 10:35 | NUR ---
KORY FINN DAUGHTER IN LAW [phone]
--- NOTE | 2020-03-04 10:45 | NUR ---
blood transfusion started. vs checked prior to transfusion. stable.
--- NOTE | 2020-03-04 10:45 | NUR ---
blood transfusion started vs checked. stable.
--- NOTE | 2020-03-04 10:51 | NUR ---
VERIFIED BLOOD UNIT WITH LUIS NGUYEN RN.
--- NOTE | 2020-03-04 10:59 | NUR ---
called for report, nurse stated to call back in 5min
[2020-03-04 11:09] LABS: BAND % (MANUAL) 2 % (0.0-5.0); EOSINOPHILS % (MANUAL) 3 % (0-4); LYMPHOCYTES % (MANUAL) 7 % (16-48); MONOCYTES % (MANUAL) 2 % (0-11.0); NEUTROPHILS % (MANUAL) 86 (42-76)
--- NOTE | 2020-03-04 11:40 | NUR ---
report given to so otto at [facility]
[2020-03-04 11:45] VITALS: BP 152/73
--- NOTE | 2020-03-04 11:45 | NUR ---
transferred to [facility] in 324
--- NOTE | 2020-03-04 11:45 | NUR ---
RN NOTES RECEIVED REPORT FROM ER NURSE XOCHITL. PATIENT ARRIVED AT UNIT AT 324-2 VIA GURNEY ACCOMPANIED BY 2 ER NURSES. PATIENT ALREADY STARTED BLOOD TRANSFUSION AT ER. VS TAKEN
[2020-03-04] MEDS: ENSURE ENLIVE CHOC 237 ML CAN PO SCH ×2 (12:00→17:00)
[2020-03-04] MEDS: POTASSIUM CHLORIDE 20 MEQ TAB.PRT.SR PO SCH ×3 (12:51→17:50)
[2020-03-04 14:15] VITALS: BP 136/75
--- NOTE | 2020-03-04 14:28 | NUR ---
RN NOTES BLOOD TRANSFUSION COMPLETED AT 1415; VS TAKEN POST TRANSFUSION. PATIENT HAS NO COMPLAINT OF PAIN, NOTED TO BE AWAKE AND VERBALLY RESPONSIVE, NOT IN ACUTE DISTRESS. BREATHING EVEN AND UNLABORED ON ROOM AIR, O2 SAT AT 98%. WILL CONTINUE TO MONITOR.
[2020-03-04] MEDS: CEFTRIAXONE 1 G in IV D5W 50 ML IV SCH (14:54)
[2020-03-04 16:00] VITALS: BP 151/73
[2020-03-04] MEDS: METOPROLOL TARTRATE 25 MG TABLET PO SCH (17:50)
[2020-03-04 17:55] LABS: HEMOGLOBIN 7.4 g/dL (11.5-14.8)
--- NOTE | 2020-03-04 19:15 | NUR ---
MIRROR SPECIALIST CLOSING NOTES PATIENT ADMITTED TODAY FROM ER, S/P BLOOD TRANSFUSION, STARTED AT ER AND FINISHED AT UNIT. BLOOD TRANSFUSION INFO PLACED IN PATIENT'S CHART INCLUDING VS. NO TRANSFUSION REACTION OBSERVED. PATIENT IS AWAKE AND VERBALLY RESPONSIVE, A/O X3-4, YAKUT-SPEAKING BUT ABLE TO COMMUNICATE IN [place]EN[place]. IV LINE ON RAC #20 INTACT AND PATENT; IV MEDICATION GIVEN. REPLACED K+ W/ ORAL POTASSIUM, TAKEN FAIRLY BY PATIENT. BELONGINGS LIST FORM COMPLETED. DR. WISEMAN INFORMED EARLIER ABOUT BT. ENDORSED TO CHEESEMAKER HELPER RN FOR FAWAD.
--- NOTE | 2020-03-04 19:58 | NUR ---
GROOMING ASSISTANT NOTES RECEIVED PATIENT ASLEEP AT THIS TIME, BREATHING EVEN AND UNLABORED. REPOSITIONED FOR COMFORT. IV ACCESS INTACT AND PATENT. COTTO CATHETER INTACT DRAINING TO A TEA COLORED URINE OUTPUT. SAFETY MEASURES IN PLACE, ASPIRATION PRECAUTION EMPHASIZED. CALL LIGHT WITH IN EASY REACH. ALL NEEDS ANTICIPATED, WILL CONTINUE TO MONITOR ACCORDINGLY.
[2020-03-04 20:00] VITALS: BP 152/76
--- NOTE | 2020-03-04 21:30 | NUR ---
RN NOTES KORY ) THE DAUGHTER IN-[place] CALLED UPDATED HER REGARDING PATIENTS' CURRENT CONDITION.
--- NOTE | 2020-03-05 00:03 | NUR ---
RN NOTES TYLENOL 650 MG GIVEN FOR COMPLAINTS OF GENERALIZED PAIN.
--- NOTE | 2020-03-05 06:20 | NUR ---
MS RN NOTES ALL NEEDS ATTENDED AND MET, ABLE TO REST AND SLEPT AT INTERVALS. FOR MRCP MAGNETIC RESONANCE CHOLANGIOPANCREATOGRAPHY WITHOUT CONTRAST TODAY.CONSENT SIGNED. RESTING COMFORTABLY AT THIS TIME. ALL NEEDS ANTICIPATED. WILL ENDORSE TO AM NURSE FOR CONTINUITY OF CARE.
[2020-03-05] MEDS: PANTOPRAZOLE 40 MG TABLET.DR PO SCH (07:30)
--- NOTE | 2020-03-05 07:30 | NUR ---
MS/RN Opening note Patient received from welder manufacture. A/O X4, vital signs stale, pain controlled at this time. NPO for MRCP later this morning, consent forms signed and placed in front of chart, patient aware that she is unable to eat or drink until after test. Heplcok to right AC flushing well with normal saline, no sings of infiltration seen. Safety measures in place, bed in low setting, side rails X3 in upright position. Call light within reach, will continue to monitor and ensure safety.
[2020-03-05 07:41] LABS: BASOPHILS # (AUTO) 0.1 /CMM (0.0-0.2); BASOPHILS % (AUTO) 0.3 % (0.0-2.0); EOSINOPHILS % (AUTO) 0.6 % (0.0-6.0); HEMATOCRIT 23 % (33-45); HEMOGLOBIN 7.5 g/dL (11.5-14.8); LYMPHOCYTES # (AUTO) 7.2 /CMM (0.8-4.8); LYMPHOCYTES % (AUTO) 47.8 % (20.0-44.0); MEAN CORPUSCULAR HGB CONC 32 g/dl (31.0-36.0); MEAN CORPUSCULAR VOLUME 79 fL (82-100); MONOCYTES # (AUTO) 0.9 /CMM (0.1-1.30); MONOCYTES % (AUTO) 5.7 % (2.0-12.0); NEUTROPHILS # (AUTO) 6.9 /CMM (1.8-8.9); NEUTROPHILS % (AUTO) 45.6 % (43.0-81.0); PLATELET COUNT (AUTO) 509 /CMM (150-450); RED BLOOD CELL COUNT(AUTO) 2.97 MIL/uL (4.0-5.2); WHITE BLOOD COUNT (AUTO) 15.2 K/uL (4.3-11.0)
[2020-03-05 08:00] VITALS: BP 145/73
[2020-03-05] MEDS: ENSURE ENLIVE CHOC 237 ML CAN PO SCH ×3 (08:00→17:26)
[2020-03-05 08:34] LABS: ALBUMIN 1.7 g/dL (3.4-5.0); BILIRUBIN,TOTAL 7.7 mg/dL (0.2-1.0); CALCIUM, SERUM 8.3 mg/dL (8.5-10.1); CREATININE 0.9 mg/dL (0.6-1.3); POTASSIUM 3.4 mmol/L (3.5-5.1); TOTAL PROTEIN, SERUM 6.4 g/dL (6.4-8.2)
[2020-03-05 08:44] LABS: THYROID STIMULATING HORMONE 2.291 uIU/mL (0.358-3.74)
[2020-03-05] MEDS: POTASSIUM CHLORIDE 20 MEQ TAB.PRT.SR PO SCH ×3 (08:46→17:25)
[2020-03-05] MEDS: ENOXAPARIN SODIUM 40 MG/0.4 ML DISP.SYRIN SQ SCH (08:47)
[2020-03-05] MEDS: METOPROLOL TARTRATE 25 MG TABLET PO SCH ×2 (08:49→17:26)
[2020-03-05] MEDS: CEFTRIAXONE 1 G in IV D5W 50 ML IV SCH (11:06)
--- NOTE | 2020-03-05 11:14 | NUR ---
MS/RN S/B Dr Jimenez Seen by Dr Jimenez - second unit of blood to be transfused today after MRCP. Possible discharge after transfusion.
[2020-03-05] MEDS ORDERED: HYDROCODONE/APAP 5/325MG TABLET PO PRN (11:30)
--- NOTE | 2020-03-05 15:00 | NUR ---
MS/RN Blood Bank Blood bank called, spoke with Felicitas. Stated that blood not yet available, will call when ready for slate picker.
--- NOTE | 2020-03-05 15:15 | NUR ---
MS/RN MRCP MRCP results faxed to Dr Jimenez's office. Will call to confirm receipt.
--- NOTE | 2020-03-05 15:29 | NUR ---
MS/RN [facility] Spoke with Jere from [facility]. Stated that they would call and speak with daughter regarding discharge plans. Informed that discharge would more likely happen tomorrow as equipment still needed to be ordered.
--- NOTE | 2020-03-05 15:32 | NUR ---
RN MS NOTES PREPARED EXIT CARE. PATIENT MEDICALLY STABLE. READY FOR DISCHARGE AFTER BLOOD TRANSFUSION. WILL MONITOR FOR ADVERSE REACTIONS.
--- NOTE | 2020-03-05 15:44 | NUR ---
RN MS MRCP CALLED DR. VELAZCO'S OFFICE TO CONFIRM IF MRCP RESULTS WERE RECEIVED. SPOKE TO NILTON, SAID SHE RECEIVED IT AND WILL HAVE DR. VELAZCO SIGN THE MRCP.
[2020-03-05 16:00] VITALS: BP 148/79
[2020-03-05 18:17] VITALS: BP 154/79
--- NOTE | 2020-03-05 18:24 | NUR ---
MS/RN Blood transfusion Blood transfusion started at 182, vital sings to be recorded as per hospital protocol.
[2020-03-05 18:39] VITALS: BP 149/71
--- NOTE | 2020-03-05 19:06 | NUR ---
LENS GRINDER APPRENTICE: CONTINUITY OF CARE Patient in bed awake. Stable on room air, denies SOB. Blood transfusion PRBC infusing, denies chest pain, no chills. Patient to be dc home today after blood transfusion is finished per report.
[2020-03-05 20:00] VITALS: BP 154/84
[2020-03-05 21:16] VITALS: BP 156/79
--- NOTE | 2020-03-05 21:19 | NUR ---
MECHANOTHERAPIST: PRBC TRANSFUSED Blood transfusion infused. VS stable, denies chest pain, no chills, low grade temp 99.5 Oral. No hematuria. Patient anxious to go home.
--- NOTE | 2020-03-05 22:03 | NUR ---
INSPECTOR GENERAL: DISCHARGED Patient remains stable post blood transfusion PRBC. DC instruction and new medication discussed to patient, verbalized understanding. IV peripheral line removed, urinary hudson cath remains in place as per patient chronic use of hudson cath at home. All personal belonging send with the patient upon dc. Patient left hosp pick-up by Brandy/caregiver via private car.
== END 2020-03-05 23:48 | disposition hospice, home (50) | DRG 754 ==
LOC: ER 08:07 → TELE 10:53
PROVIDERS: ADMIT Internal Medicine; ATTEND Internal Medicine
PROC: 30233N1 Transfusion of Nonautologous Red Blood Cells into Peripheral Vein, Percutaneous Approach (ICD-10-PCS; principal; 2020-03-04)
DX: C56.9 Malignant neoplasm of unspecified ovary (principal); E43 Unspecified severe protein-calorie malnutrition; C78.7 Secondary malignant neoplasm of liver and intrahepatic bile duct; N39.0 Urinary tract infection, site not specified; J98.11 Atelectasis; R64 Cachexia; D63.0 Anemia in neoplastic disease; Z20.828 Contact with and (suspected) exposure to other viral communicable diseases; I10 Essential (primary) hypertension; J44.9 Chronic obstructive pulmonary disease, unspecified; Z86.711 Personal history of pulmonary embolism; Z87.81 Personal history of (healed) traumatic fracture; Z87.440 Personal history of urinary (tract) infections; Z83.3 Family history of diabetes mellitus; M19.90 Unspecified osteoarthritis, unspecified site; F32.9 Major depressive disorder, single episode, unspecified; F41.9 Anxiety disorder, unspecified; Z79.51 Long term (current) use of inhaled steroids; Z79.899 Other long term (current) drug therapy; D47.3 Essential (hemorrhagic) thrombocythemia; E87.6 Hypokalemia; G51.0 Bell's palsy; Z51.5 Encounter for palliative care
CPT/HCPCS: 36415; 71045-TC; 74181-TC; 76700-TC; 80053-TC; 81001; 82105; 82378; 83540-TC; 84443-TC; 85025-TC; 85027-TC; 85045-TC; 85610-TC; 85730-TC; 86301; 86304; 86850-TC; 87081-TC; 87086-TC; 87186-TC; C9803; G0378; J0696; J7050; J7060; P9016-BL